=== PATIENT | female | born 1940 | race Caucasian/White ===

== ENCOUNTER 2020-02-23 22:21 | Emergency (ER) | payer MEDICARE, BC, SELFPAY ==
[2020-02-23 22:26] VITALS: BP 180/75; PULSE 57; RESP 19; TEMP 36.3
--- NOTE | 2020-02-23 22:35 | ED.ALLEREA ---
HPI - Allergic Reaction General Chief complaint: Allergic Reaction Stated complaint: ?? allergic reaction Time Seen by Provider: 02/23/20 22:31 History of Present Illness HPI narrative: 79 yo female presents from home for an allergic reaction. SHe has had redness and itching to the face and scalp since earlier this evening. Additionally has some discomfort in her mouth. She was started on bactrim yesterday for a UTi. She had taken 3 doses. She has taken it one previous time without reaction. She has no other new medications or exposures. No fever, wound, bullae Related Data Allergies Allergy/AdvReac Type Severity Reaction Status Date / Time losartan Allergy Intermediate RAPID HR, Verified 01/05/19 03:10 DIZZY, ANXIOUS prednisone Allergy Intermediate BLURRED Verified 01/05/19 03:10 VISION, FREQUENT URINATION Sulfa (Sulfonamide Allergy Intermediate Rash Verified 02/23/20 22:51 Antibiotics) adhesive tape Allergy Unknown RASH Verified 01/05/19 03:01 dexamethasone Allergy Unknown RASH Verified 01/05/19 03:01 erythromycin base Allergy Unknown RASH Verified 01/05/19 03:18 meperidine Allergy Unknown DIZZINESS/PASSES Verified 01/05/19 03:01 OUT nalbuphine Allergy Unknown PASSED OUT Verified 01/05/19 03:01 verapamil Allergy Unknown FAST Verified 01/05/19 03:01 HEART RATE Review of Systems Review of Systems: All systems reviewed & are unremarkable except as noted in HPI and below Constitutional: Constitutional: Denies chills, Denies fever(s) and Denies weakness Cardiovascular: Cardiovascular: Denies chest pain Respiratory: Respiratory: Denies dyspnea Gastrointestinal: Gastrointestinal: Denies abdominal pain and Denies nausea Genitourinary: Genitourinary: Reports dysuria Musculoskeletal: Musculoskeletal: Denies back pain Integumentary/Breasts: Skin/Breast: Reports pruritus, Reports rash and Denies skin ulcer Neurologic: Denies numbness and Denies weakness PMFSH Past Medical History Medical History (Updated 02/24/20 @ 00:00 by Background Daemon) Breast cancer HTN (hypertension) Hypothyroid Surgical History Surgical History (Updated 02/23/20 @ 22:49 by Bethel Tavarez MD) Hx of cholecystectomy Social History Social History (Updated 02/23/20 @ 22:49 by Bethel Tavarez MD) Living arrangements: with family Exam Const: General: healthy appearing, no acute distress and alert Nutritional Appearance: well nourished Orientation/consciousness: patient oriented x3 HENMT: Other: Mild redness of cheeks and scalp. Resp: Effort & Inspection: normal respiratory effort Auscultation: clear to auscultation bilaterally Cardio: Rate: regular rate Rhythm: regular rhythm Skin: Other: See HEENT Neuro: General: patient oriented x3 and CN's II-XI intact bilaterally Speech: normal speech Extrem: General: normal to inspection Course Vital Signs Vital signs: Vital Signs Temperature 36.3 C L 02/23/20 22:26 Pulse Rate 57 L 02/23/20 22:26 Respiratory Rate 19 02/23/20 22:26 Blood Pressure 180/75 H 02/23/20 22:26 Temperature 36.3 C L 02/23/20 22:26 Pulse Rate 53 L 02/23/20 23:38 Respiratory Rate 18 02/23/20 23:38 Blood Pressure 130/60 02/23/20 23:38 Pulse Oximetry 98 02/23/20 23:38 MDM - Allergic Reaction MDM Narrative Medical decision making narrative: She appears to have an allergic reaction to bactrim. She has corticosteroid allergies listed. Her reaction does is not currently severe so I will avoid them for now. If it should get worse they may be unavoidable. Differential Diagnosis Differential diagnosis: Likely allergic reaction Medical Records Attestation: I reviewed the patient's medical records. Discharge Plan Discharge Clinical Impression: Adverse reaction to drug Patient Disposition: Home, Self-Care Condition: Stable Instructions: Antibiotic Form, Antibiotic Medication Allergy (ED) Prescriptions: Martínez cohen
[2020-02-23 22:53] VITALS: BP 167/67; PULSE 58; RESP 18; O2SAT 97
[2020-02-23] MEDS: diphenhydrAMINE HCl CAP 25 MG CAPSULE PO (22:54)
[2020-02-23 23:38] VITALS: BP 130/60; PULSE 53; RESP 18; O2SAT 98
== END 2020-02-23 23:45 | disposition home or self-care (01) ==
PROVIDERS: Emergency Provider Emergency Medicine
DX: L29.9 Pruritus, unspecified (principal); T36.8X5A Adverse effect of other systemic antibiotics, initial encounter; Z85.3 Personal history of malignant neoplasm of breast; I10 Essential (primary) hypertension; E03.9 Hypothyroidism, unspecified
CPT/HCPCS: 99283; A9270

== ENCOUNTER 2022-03-24 00:19 | Day surgery (SDC) | payer MEDICARE, BC, SELFPAY ==
[2022-03-12 13:14] VITALS: BMI 28.3
--- NOTE | 2022-03-12 13:46 | PC.NURSE ---
Report to the Outpatient Waiting Room, entrance under the green pavilion located off [facility], at time ___0630____ on date _03/24/22 . Planned Procedure Time: ___829 . Time changes happen often and if your time is changed the preop area will call you the afternoon before. - You and your visitor will be asked to self-screen and do not enter if you have any COVID symptoms. - We encourage only one visitor and NO visitors under age 16 are allowed at this time. Your visitor will receive communication by the phone number that is given day of service. - The patient visitor is requested to social distance or may leave the building when not with patient due to restrictions. - A mask is required within the hospital. Patients may have clear liquids (water, carbonated beverages, clear teas, apple juice) until 3 hours prior to surgery (0530 AM) with a maximum of 20 ounces. - No food from midnight until time of surgery - Infants may have breast milk until 4 hours before surgery, infant formula 6 hours prior to surgery. - Children will be allowed to drink immediately following surgery. If applicable, please bring a bottle or sippy cup to assist with drinking. Juice, water, soda, and popsicles are readily available. For infants on formula, please bring formula the day of surgery. Pacifiers are allowed. Take the following medications with a SIP of water the morning of surgery: _CARVEDILOL, LEVOTHYROXINE_ Medications to discontinue per physician N/A Date to take last dose Please no make-up, nail french, hairspray, perfume, deodorant, or body powder the day of surgery. No jewelry (including any body piercings) or valuables the day of surgery, leave them at home. Please take a shower or bath the night before, or the morning of, surgery with an antibacterial soap. Wear comfortable, loose fitting clothing. Children are encouraged to wear pajamas. - Jewelry must be removed prior to entering the operating room. Rings and piercings that are not removed may be cut off. - The hospital will not accept responsibility for valuables. - Please leave all valuables, including medications, at home the day of surgery. If you are going home after surgery, a licensed limousine driver must drive you home. - NO public transportation without another adult. - We recommend that an adult stay with you for 24 hours following discharge. - We also recommend that you do not drive, make important decision, drink alcoholic beverages, or take any drugs that were not prescribed by your health care provider for at least 24 hours after your discharge time. For Pediatric surgeries, we recommend two adults accompany the child home. Follow any additional instructions given to you from your surgeon. If you or anyone in your household have experienced Covid symptoms in the past week, please notify your surgeon or the nurse liaison at the phone number below for possible testing. Telephone instructions given to ____PT and asked if any additional questions and then verbalized understanding. Patient advised to call surgeon office or pre surgery nurse liaison [phone] if any additional questions.
[2022-03-24] VITALS (7 sets, daily range): BP systolic 133–156; BP diastolic 58–73; PULSE 69–77; RESP 10–18; TEMP 36.1; O2SAT 97–100
--- NOTE | 2022-03-24 05:58 | ECG_ITS ---
Measurements Intervals [place] Rate: 68 P: 41 AL: 183 QRS: -35 QRSD: 103 T: 29 QT: 400 QTc: 426 Interpretive Statements SINUS RHYTHM LEFT AXIS DEVIATION DELAYED PRECORDIAL R/S TRANSITION BORDERLINE ECG NO PREVIOUS ECG AVAILABLE FOR COMPARISON Electronically Signed On 03-24-2022 8:23:04 CDT by Johnson Guillen D.O.
--- NOTE | 2022-03-24 07:01 | WPDHPUPDATE1 ---
History and Physical Update Update Date/Time: 03/24/22 07:01 History and Physical has been reviewed, including an updated exam of the patient. There are NO changes in the patient's condition. Risks, benefits, and alternatives have been discussed and questions answered. Patient agrees to proceed with procedure.
--- NOTE | 2022-03-24 07:11 | WPDANESEPPF ---
Anes - Initial Pre Proc Eval Procedure: Operation Date: 03/24/22 08:30 Proposed Procedures p Left Breast Implant Exchange with Capsulectomy - Atul Diez MD Date/Time: 03/24/22 07:11 Surgeon: Atul Diez MD Pre Op Diagnosis: Lt Breast Implant Rupture Patient Data Age: 81 Gender: F Height: 1.6 m Weight: 72.72 kg Allergies Allergy/AdvReac Type Severity Reaction Status Date / Time losartan Allergy Intermediate RAPID HR, Verified 03/24/22 07:12 DIZZY, ANXIOUS prednisone Allergy Intermediate BLURRED Verified 03/24/22 07:12 VISION, FREQUENT URINATION Sulfa (Sulfonamide Allergy Intermediate Rash Verified 03/24/22 07:12 Antibiotics) adhesive tape Allergy Unknown RASH Verified 03/24/22 07:12 dexamethasone Allergy Unknown RASH Verified 03/24/22 07:12 erythromycin base Allergy Unknown RASH Verified 03/24/22 07:12 meperidine Allergy Unknown DIZZINESS/PASSES Verified 03/24/22 07:12 OUT nalbuphine Allergy Unknown PASSED OUT Verified 03/24/22 07:12 verapamil Allergy Unknown FAST Verified 03/24/22 07:12 HEART RATE sertraline AdvReac FAST Verified 03/24/22 07:12 HEART RATE DIZZY/ANXIOUS Home Medications Medication Instructions Recorded Confirmed Type amlodipine 5 mg tablet 2.5 mg HS 03/12/22 03/12/22 History carvedilol 6.25 mg tablet 6.25 mg BID 03/12/22 03/12/22 History levothyroxine 75 mcg tablet 75 mcg DAILY 03/12/22 03/12/22 History Patient hx anesthesia problems: post op nausea/vomiting Family hx anesthesia problems: none Results Review: All pre-operative results and documents have been reviewed as part of the pre-operative evaluation. [facility] Past Medical History Medical History Breast cancer HTN (hypertension) Hypothyroid Surgical History Surgical History Hx of cholecystectomy Social History Social History Smoking status: Never smoker Second hand tobacco smoke exposure: No Alcohol intake: current Alcohol use details: MAYBE 1/MONTH Substance use: never Substance use type: does not use Living arrangements: with family Spiritual care concerns: No Anes - Eval Final PreProcedure Day of Procedure 03/24/22 07:11 Patient weight: overweight Heart: regular rate and rhythm Lungs: clear to auscultation Airway: Mallampati scale class II Neurological: alert and oriented Last oral intake: >/= 8 hours ASA classification: III Emergent: no Anesthetic plan: proceed Anesthesia type and monitoring: general LMA and standard monitoring Results Review: All pre-operative results and documents have been reviewed as part of the pre-operative evaluation. Informed Consent: The patient's anesthetic plan and its attendant risks and benefits were discussed with the patient/family/POA. Questions were solicited and answers provided to the satisfaction of the patient/family/POA.
[2022-03-24] MEDS: LACTATED RINGERS 1,000 ML 30 ML IV CONT (07:24)
[2022-03-24] MEDS: ceFAZolin 2 GM/D5W 50 ML 2 GM/50 ML BAG IVPB (08:45)
[2022-03-24] MEDS: NACL 0.9% IRRIG POUR BOTTLE 900 ML, GENTAMICIN SULFATE INJ 160 MG, ceFAZolin 2 GM, POVI... IRRIGATION (09:12)
[2022-03-24] MEDS: BUPIVACAINE/EPINEPHRINE 0.25% 50 ML VIAL 20 ML INFILTRATE (09:13)
[2022-03-24] MEDS: LIDOCAINE 1% BUFFERED WITH 8.4% SODIUM BICARB 1 ML SYRINGE 20 ML INFILTRATE (09:18)
--- NOTE | 2022-03-24 09:51 | W.PM.PROC2 ---
Procedure Note - Detailed Date of Procedure 03/24/22 Pre-op Diagnosis Lt Breast Capsular Contracture, Acquired breast deformity Post-op Diagnosis Same Procedure Performed 1. Left breast intact implant removal 2. Left breast implant placement 3. Left breast capsulectomy Surgeon Atul Diez MD Anesthesia General Findings Left previous implant Saline textured shaped implant 275cc. No seroma or masses Implant intact Left replacement implant Megha Carpio SoftTouch 310cc Silcone REF# [id number] Description of Procedure Preoperatively the risks, benefits, alternatives were discussed in extensive detail. I want her to be very realistic about the risks involved as well as expectations. Made sure answered all of her questions to her satisfaction. explained how this may not improve her symptoms in could make her worse. Answered all of her questions to her satisfaction. They voiced a clear understanding. Consent obtained. She was marked in the preoperative holding area with her verification. She was taken to the operating room placed supine on the operating room table. Anesthesia provided by anesthesiology and prepped and draped in a standard sterile fashion. Surgical time-out was taken. 1% lidocaine and 0.25% Marcaine with epinephrine was used to provide a field block. Fifteen blade used to excise the lower portion of the previous latissimus flap scar. Dissection was continued down until the capsule is identified and a removed the entirety of the anterior surface of this capsule. This was sent to pathology. I copiously irrigated with more than a L of saline solution on TUR tubing. Verified a strict hemostasis. I then irrigated with Betadine solution. Using a no-touch technique and a Livingston funnel the implant was introduced into the pocket. I closed using 2-0 Vicryl followed by 3-0 Stratafix followed by running subcuticular 4-0 Monocryl and tissue glue. Dressings were placed. She tolerated well. Estimated Blood Loss 10 Drains No Packing No Pathology Yes (Left breast implant capsule) Complications No immediate complications Condition Stable Disposition PACU
[2022-03-24] MEDS: oxyCODONE HCL (*CRX) 2.5 MG TAB IR PO (10:49)
== END 2022-03-24 11:26 | disposition home or self-care (01) ==
PROVIDERS: Visit Provider Surgery Plastic and Reconstructive Surgery
PROC: (CPT 19371; principal; 2022-03-24 08:30)
DX: T85.44XA Capsular contracture of breast implant, initial encounter (principal); N65.0 Deformity of reconstructed breast; Y83.8 Other surgical procedures as the cause of abnormal reaction of the patient, or of later complication, without mention of misadventure at the time of the procedure; Z85.3 Personal history of malignant neoplasm of breast; Z86.73 Personal history of transient ischemic attack (TIA), and cerebral infarction without residual deficits; I10 Essential (primary) hypertension; E03.9 Hypothyroidism, unspecified
CPT/HCPCS: 19371; 19342; 88300; 93005; A9270; J0461; J0690; J1580; J2405; J2704; J3010; J7120

== ENCOUNTER 2022-06-28 13:24 | Observation (INO) | payer MEDICARE, BC, SELFPAY ==
[2022-06-28] VITALS (21 sets, daily range): BP systolic 107–137; BP diastolic 53–69; PULSE 60–71; RESP 14–18; TEMP 36.5; O2SAT 92–100; BMI 25.9
--- NOTE | ~2022-06-28 | CT_ITS ---
CT head without contrast Indication: Head injury Technique: Serial scans were obtained through the brain without the administration of contrast. Dose reduction technique was used on this scan by utilizing automated exposure control and iterative recon struction technique. The dose-length product (DLP) was 605.33 mGy-cm. Findings: There is no evidence of intracranial hemorrhage, mass lesion, or acute infarct. The ventri cles and subarachnoid spaces are dilated, consistent with mild atrophy. Low attenuation regions are seen within the periventricular white matter bilaterally, likely representing changes from chronic mi crovascular ischemic disease. There is no evidence of edema, mass effect or midline shift. The visu alized paranasal sinuses and mastoid air cells are clear. Impression: No intracranial hemorrhage, mass, or acute infarct. Atrophy and chronic white matter changes, as above. Reviewed, dictated and finalized at location . K OUT MACHINE OPERATOR Impression: No intracranial hemorrhage, mass, or acute infarct. Atrophy and chronic white matter changes, as above.
--- NOTE | ~2022-06-28 | XR_ITS ---
Right Knee Technique: AP, lateral, and oblique views were obtained. Clinical History: Pain Findings: No fracture or dislocation is seen. Total knee arthroplasty is in place. No hardware compli cation identified. Soft tissues are unremarkable. No joint effusion is seen. Impression: No acute abnormality seen. Total knee arthroplasty in place. Reviewed, dictated and finalized at location . D TECHNICIAN SUPERVISOR Impression: No acute abnormality seen. Total knee arthroplasty in place.
--- NOTE | ~2022-06-28 | CT_ITS ---
Noncontrast CT scan of the pelvis CLINICAL HISTORY: Fracture TECHNIQUE: Axial noncontrast imaging of the pelvis was performed. Sagittal and coronal reformatted im ages were constructed. Dose reduction technique was used on this scan by utilizing automated exposure control and iterative reconstruction technique. FINDINGS: Right hip arthroplasty hardware is in place. There is an acute fracture through the intertr ochanteric region of the proximal right femur with additional oblique extension through the proximal right femoral shaft (coronal images 54-62). Fracture is minimally displaced overall. Hardware alignme nt otherwise appears satisfactory. There is moderate degenerative change at the superolateral aspect of the left hip joint. No acetabula r or other pelvic fracture identified. Urinary bladder unremarkable. No intrapelvic abnormality seen. There is apparent asymmetric enlargeme nt of the right vastus medialis and possibly intermedius muscles, suggestive of intramuscular hematom a. IMPRESSION: Traumatic intertrochanteric fracture of the proximal right ureter with additional oblique extension t hrough the proximal right femoral shaft, as detailed above. Fracture is minimally displaced. Underlying right hip arthroplasty present. Apparent asymmetric enlargement of the right vastus medialis and possibly intermedius muscles, sugges tive of intramuscular hematoma given presumed recent trauma with the fracture present. Reviewed, dictated and finalized at location M. ER HOUSE OPERATOR IMPRESSION: Traumatic intertrochanteric fracture of the proximal right ureter with addition al oblique extension through the proximal right femoral shaft, as detailed abov e. Fracture is minimally displaced. Underlying right hip arthroplasty present. Apparent asymmetric enlargement of the right vastus medialis and possibly inter medius muscles, suggestive of intramuscular hematoma given presumed recent trau ma with the fracture present.
--- NOTE | ~2022-06-28 | XR_ITS ---
Right ankle Technique: AP, oblique, and lateral views were obtained. Clinical History: Pain Findings: No acute fracture or dislocation is seen. Osseous alignment is anatomic. Ankle mortise and other visualized joint spaces are preserved. Soft tissues are otherwise unremarkable. Impression: Unremarkable right ankle. Reviewed, dictated and finalized at location . ER PRODUCTION LINE ARC Impression: Unremarkable right ankle.
--- NOTE | ~2022-06-28 | XR_ITS ---
AP views of the pelvis Clinical history: Femoral fracture COMPARISON: 06/28/2022 Findings: Oblique, mildly displaced fracture of the intertrochanteric region and proximal shaft of th e right femur is again noted. Right hip arthroplasty unchanged. Left hip and bilateral SI joint space s are preserved. Soft tissues are unremarkable. Impression: Oblique, mildly displaced fracture of the right intertrochanteric region and proximal right femoral s haft, unchanged. Reviewed, dictated and finalized at location M. ERCIAL INTERN Impression: Oblique, mildly displaced fracture of the right intertrochanteric region and pr oximal right femoral shaft, unchanged.
--- NOTE | ~2022-06-28 | XR_ITS ---
AP view of the pelvis and AP and lateral views of the right hip Clinical history: Pain Findings: Right hip arthroplasty is in place. There is an acute, oblique fracture extending through t he intertrochanteric region, as well as to the medial aspect of the proximal right femoral shaft. Fra cture is mildly displaced. There is heterotopic ossification at the right greater trochanteric region .. Impression: Acute intertrochanteric fracture of the proximal right femur with additional extension to the medial aspect of the very proximal right femoral shaft. Fracture is mildly displaced. Right hip arthroplasty with heterotopic ossification, as noted above. Reviewed, dictated and finalized at location . NDER TESTER Impression: Acute intertrochanteric fracture of the proximal right femur with additional ex tension to the medial aspect of the very proximal right femoral shaft. Fracture is mildly displaced. Right hip arthroplasty with heterotopic ossification, as noted above.
--- NOTE | ~2022-06-28 | XR_ITS ---
Right wrist Technique: PA, oblique, lateral, and ulnar deviation views were obtained. Clinical History: Pain Findings: No acute fracture or dislocation is seen. Osseous alignment is anatomic. There are minimal degenerative changes at the radioscaphoid articulation and first CMC joint. Soft tissues are unremark able. Impression: No fracture or dislocation. Minimal degenerative changes, as above. Reviewed, dictated and finalized at location . NGS COUNSELOR Impression: No fracture or dislocation. Minimal degenerative changes, as above.
--- NOTE | ~2022-06-28 | XR_ITS ---
EXAMINATION: XR femur RT min 2V DATE: 06/29/2022 10:31 INDICATION: Right femur fracture. TECHNIQUE: 2 views of right femur on 4 radiographs were obtained. COMPARISON: Right hip radiographs 06/28/2022 FINDINGS: There is a total right hip arthroplasty. There is an acute comminuted periprosthetic fractu re of proximal right femur. The main distal fracture fragment demonstrates 1.4 cm lateral displacemen t and 0.8 cm posterior displacement. There is heterotopic ossification near right hip. There is a tot al right knee arthroplasty with patellar resurfacing in near-anatomic alignment. No periprosthetic vasu cency to suggest loosening or infection. IMPRESSION: 1. Acute comminuted periprosthetic fracture of proximal right femur. Reviewed, dictated and finalized at location A. PER TENDER
--- NOTE | 2022-06-28 13:48 | ED.LOWEXIN ---
HPI - Extremity Injury (Lower) General Chief Complaint: Extremity Injury, Lower Stated Complaint: rt leg and hip broken Time Seen by Provider: 06/28/22 13:33 History of Present Illness HPI Narrative: Patient is an 82-year-old female here for evaluation of right hip and right wrist pain after a fall today. Patient states that she was ambulating her in her usual state of health when she tripped over a piece of sidewalk. This caused her to fall onto her right side and strike her head against the pavement. She denies loss of consciousness. Since the fall she has been unable to ambulate due to pain in her hip. She has not attempted any pain medicine yet. Denies numbness or tingling in her extremities. She follows with Dr. Aranda and has had her knee replaced on the right side. Related Data Home Medications Medication Instructions Recorded Confirmed amlodipine 5 mg tablet 2.5 mg HS 03/12/22 03/12/22 carvedilol 6.25 mg tablet 6.25 mg BID 03/12/22 03/12/22 levothyroxine 75 mcg tablet 75 mcg DAILY 03/12/22 03/12/22 Allergies Allergy/AdvReac Type Severity Reaction Status Date / Time losartan Allergy Intermediate RAPID HR, Verified 03/24/22 07:12 DIZZY, ANXIOUS prednisone Allergy Intermediate BLURRED Verified 03/24/22 07:12 VISION, FREQUENT URINATION Sulfa (Sulfonamide Allergy Intermediate Rash Verified 03/24/22 07:12 Antibiotics) adhesive tape Allergy Unknown RASH Verified 03/24/22 07:12 dexamethasone Allergy Unknown RASH Verified 03/24/22 07:12 erythromycin base Allergy Unknown RASH Verified 03/24/22 07:12 meperidine Allergy Unknown DIZZINESS/PASSES Verified 03/24/22 07:12 OUT nalbuphine Allergy Unknown PASSED OUT Verified 03/24/22 07:12 verapamil Allergy Unknown FAST Verified 03/24/22 07:12 HEART RATE sertraline AdvReac FAST Verified 03/24/22 07:12 HEART RATE DIZZY/ANXIOUS Review of Systems Review of Systems: Gen: Denies fevers or chills Eyes: Denies eye pain or visual change ENT: Denies congestion Respiratory: Denies shortness of breath or cough CV: Denies chest pain or palpitations GI: Denies abdominal pain nausea, emesis or diarrhea : denies burning, urgency, frequency or hematuria Musculoskeletal: Reports right hip pain and right wrist pain Neuro: Denies numbness, tingling, weakness or focal weakness Skin: Denies rash Except as documented, all other systems reviewed and negative PMFSH Past Medical History Medical History Breast cancer HTN (hypertension) Hypothyroid Surgical History Surgical History (Updated 06/28/22 @ 18:03 by Mary Fernandez NP) H/O cataract extraction H/O hysterectomy for benign disease H/O ventral hernia repair History of total right knee replacement Hx of cholecystectomy S/P total right hip arthroplasty Social History Social History Smoking status: Never smoker Second hand tobacco smoke exposure: No Alcohol intake: current Alcohol use details: MAYBE 1/MONTH Substance use: never Substance use type: does not use Living arrangements: with family Spiritual care concerns: No Exam Narrative: APPEARANCE: Well appearing, no pain in distress, well-nourished. Head: Normocephalic. EYES: PERRLA/EOMI, conjunctivae clear NOSE: No nasal drainage EARS: External ear normal in appearance THROAT: Oropharynx is clear. Mucous membranes are moist. NECK: Supple. No adenopathy, no masses. RESPIRATORY: Airway patent, respirations nonlabored. Clear to auscultation bilaterally, no rales, rhonchi, wheezing. CARDIOVASCULAR: Strong DP and PT pulses bilaterally. Regular rate and rhythm without murmurs, rubs, or gallops. ABDOMINAL: Normoactive bowel sounds. Soft, nontender, nondistended. No rebound tenderness or guarding. MUSCULOSKELETAL: Right hip is shortened and externally rotated. Tenderness to palpation along th
[2022-06-28] MEDS: MORPHINE SULFATE (*CRX) 4 MG/ML INJ IV PUSH (14:00)
[2022-06-28 14:31] LABS: Influenza A QL RT-PCR Negative (Negative); Influenza B QL RT-PCR Negative (Negative); SARS-CoV-2 RNA PCR Negative
[2022-06-28 15:25] LABS: Basophils Percent Auto 0.4 % (0.2-1.2); Eosinophils Percent Auto 0.8 % (0-4.4); Hemoglobin 14.5 g/dL (12.0-15.0); Immature Granulocyte Absolute 0.02 K/mm3 (0.00-0.031); Immature Granulocyte Percent A 0.4 % (0-0.5); Lymphocytes Absolute Auto 1.38 K/mm3 (0.9-3.2); Lymphocytes Percent Auto 27.5 % (18.3-44.2); Mean Corpuscular HGB Conc 33.7 g/dl (32-36); Mean Corpuscular Hemoglobin 31.6 pg (26-34); Mean Corpuscular Volume 93.7 fl (80-100); Mean Platelet Volume 9.6 fl (7.4-10.4); Monocytes Absolute Auto 0.5 K/mm3 (0.1-0.6); Neutrophils Absolute Auto 3.1 K/mm3 (1.3-6.7); Neutrophils Percent Auto 61.9 % (45.5-73.1); Platelet Count Result 201 k/mm3 (150-375); Red Blood Count 4.59 M/mm3 (4.2-5.4); Red Cell Distribution Width 12.4 % (11.5-14.5)
[2022-06-28] MEDS: MORPHINE SULFATE (*CRX) 2 MG/ML INJ IV PUSH ×2 (15:26→20:39)
[2022-06-28 15:30] LABS: Alanine Aminotransferase 19 U/L (6-35); Albumin Level 3.7 g/dL (3.5-5.1); Alkaline Phosphatase 77 U/L (38-126); Anion Gap 2 mmol/L (8-16); Aspartate Amino Transferase 28 U/L (14-36); Bilirubin,Total 1.1 mg/dL (0.2-1.3); Blood Urea Nitrogen 16 mg/dL (7-17); Carbon Dioxide 30 mmol/L (22-30); Chloride 107 mmol/L (98-107); Estimated CRCL calculation 45 ml/min; Estimated Glomerular Filt Rate > 60; Glucose 123 mg/dL (65-110); Potassium 4.4 mmol/L (3.4-5.0); Sodium 139 mmol/L (137-145)
[2022-06-28] MEDS: TETANUS,DIPHTHERIA,AC PERTUSSIS ADULT (0.5 ML) BOOSTRIX IM (17:08)
--- NOTE | 2022-06-28 18:00 | PM.IMHP ---
H&P: HPI History of Present Illness Date/Time: 06/28/22 18:00 Chief Complaint: Fall Narrative: This is a 82-year-old female patient who came in for evaluation of right hip and right wrist pain after a fall today. The patient stated that she was walking in her usual manner when she tripped over a piece of sidewalk. She fell onto her right side and struck her head against the pavement. She did not lose any consciousness. She was unable to get up due to her pain in her right hip. She did not attempt to take any pain medication. She has had a right knee replacement in the past. Wrist x-ray was read as minimal degenerative changes no fracture dislocation. Hip and pelvis x-ray was read as the followingAcute intertrochanteric fracture of the proximal right femur with additional extension to the medial aspect of the very proximal right femoral shaft. Fracture is mildly displaced. Right hip arthroplasty with heterotopic ossification, as noted above. Ankle x-rays unremarkable to the right ankle knee x-ray was read as no acute abnormality seen total knee arthroplasty in place. Head CT was read as the followingNo intracranial hemorrhage, mass, or acute infarct. Atrophy and chronic white matter changes, as above. Pelvis CT was read as the followingTraumatic intertrochanteric fracture of the proximal right ureter with additional oblique extension through the proximal right femoral shaft, as detailed above. Fracture is minimally displaced. Underlying right hip arthroplasty present. Apparent asymmetric enlargement of the right vastus medialis and possibly intermedius muscles, suggestive of intramuscular hematoma given presumed recent trauma with the fracture present. She is negative for influenza A/B and COVID. Orthopedic Dr. Aranda has been notified per ED provider. The patient is being admitted to observation status on the date of service of 06/28/2022 Review of Systems Review of Systems: See HPI All systems reviewed & are unremarkable except as noted in HPI and below Constitutional: Constitutional: Reports as per HPI and Reports no additional constitutional complaints Eyes: Eyes: Reports as per HPI and Reports no additional eye complaints ENT: Reports system reviewed and no additional complaints, except as documented and Reports Normal hearing present Cardiovascular: Cardiovascular: Reports no additional cardiovascular complaints Respiratory: Respiratory: Reports no additional respiratory complaints and Reports no additional respiratory complaints Gastrointestinal: Gastrointestinal: Reports as per HPI and Reports no additional gastrointestinal complaints Musculoskeletal: Musculoskeletal: Reports no additional musculoskeletal complaints Integumentary/Breasts: Skin/Breast: Reports system reviewed and no additional complaints, except as docu and Reports as per HPI Neurologic: Reports system reviewed and no additional complaints, except as documented, Reports as per HPI and Reports Normal hearing present Psychiatric: Psychiatric: Reports no additional psychiatric complaints and Reports as per HPI Endocrine: Endocrine: Reports no additional endocrine complaints Hematologic/Lymphatic: Hematologic/Lymphatic: Reports no additional hematologic/lymphatic complaints Allergic/Immunologic: Allergic/Immunologic: Reports no additional allergic/immunologic complaints PMFSH Past Medical History Medical History Anxiety Breast cancer radiation HTN (hypertension) Hypothyroid TIA (transient ischemic attack) Surgical History Surgical History (Updated 06/28/22 @ 23:18 by Mary Fernandez NP) H/O breast augmentation Left breast H/O cataract extraction H/O hysterectomy for benign disease H/O ventral hernia repair History of appendectomy History of bladder surgery History of colposcopy History of total right knee replacement Hx of cholecystectomy S/P lumpectomy, left breast S/P tot
--- NOTE | 2022-06-28 19:00 | PC.NURSE ---
Assumed care of pt. at this time. report from Roxanna CHOE
--- NOTE | 2022-06-28 19:24 | PC.NURSE ---
Report given to Jazmine CHOE on 3rd MS at 192
[2022-06-28] MEDS: fentaNYL CITRATE INJ (*CRX) 100 MCG/2 ML VIAL 25 MCG IV PUSH (22:59)
[2022-06-29] MEDS: amLODIPine BESYLATE 2.5 MG TABLET BY MOUTH (01:27)
[2022-06-29] MEDS: carvediloL 6.25 MG TABLET BY MOUTH ×2 (01:27→09:26)
[2022-06-29] MEDS: LEVOTHYROXINE SODIUM 75 MCG TABLET BY MOUTH (05:40)
[2022-06-29 06:00] VITALS: BP 119/57; PULSE 64; RESP 18; TEMP 36.3; O2SAT 96
[2022-06-29 06:28] LABS: Basophils Percent Auto 0.3 % (0.2-1.2); Eosinophils Percent Auto 0.5 % (0-4.4); Hematocrit 35.4 % (37.0-47.0); Hemoglobin 11.7 g/dL (12.0-15.0); Immature Granulocyte Absolute 0.05 K/mm3 (0.00-0.031); Immature Granulocyte Percent A 0.6 % (0-0.5); Lymphocytes Absolute Auto 1.41 K/mm3 (0.9-3.2); Lymphocytes Percent Auto 18.2 % (18.3-44.2); Mean Corpuscular HGB Conc 33.1 g/dl (32-36); Mean Corpuscular Hemoglobin 31.4 pg (26-34); Mean Corpuscular Volume 94.9 fl (80-100); Mean Platelet Volume 9.1 fl (7.4-10.4); Monocytes Absolute Auto 0.7 K/mm3 (0.1-0.6); Monocytes Percent Auto 8.5 % (2.6-8.5); Neutrophils Absolute Auto 5.6 K/mm3 (1.3-6.7); Neutrophils Percent Auto 71.9 % (45.5-73.1); Platelet Count Result 136 k/mm3 (150-375); Red Blood Count 3.73 M/mm3 (4.2-5.4); Red Cell Distribution Width 12.1 % (11.5-14.5); White Blood Count 7.7 K/mm3 (4.5-10.0)
[2022-06-29 06:50] LABS: Alanine Aminotransferase 30 U/L (6-35); Albumin Level 3.1 g/dL (3.5-5.1); Alkaline Phosphatase 66 U/L (38-126); Anion Gap 1 mmol/L (8-16); Aspartate Amino Transferase 38 U/L (14-36); Bilirubin,Total 1.7 mg/dL (0.2-1.3); Blood Urea Nitrogen 11 mg/dL (7-17); Calcium 8.1 mg/dL (8.4-10.2); Carbon Dioxide 26 mmol/L (22-30); Chloride 102 mmol/L (98-107); Estimated CRCL calculation 59 ml/min; Estimated Glomerular Filt Rate > 60; Glucose 90 mg/dL (65-110); Magnesium 2.1 mg/dL (1.6-2.3); Potassium 3.4 mmol/L (3.4-5.0); Sodium 129 mmol/L (137-145)
--- NOTE | 2022-06-29 07:53 | PCPTNOTE ---
Addendum entered by Tricia Lynne, PT 06/29/22 12:29: Pt to have ortho surgery or will be transferred to another facility. Pt DC from PT this date until pt is stable/able to participate in therapy. Original Note: Waiting on ortho evaluation prior to initiation of therapy. Will Follow.
[2022-06-29 09:26] VITALS: PULSE 64
--- NOTE | 2022-06-29 10:16 | PM.CNOR ---
Assessment and Plan Assessment and plan (1) Periprosthetic intertrochanteric fracture of femur: Code(s): M97.8XXA - Periprosthetic fracture around other internal prosthetic joint, initial encounter; Z96.649 - Presence of unspecified artificial hip joint Status: Acute Plan patient is an 82-year-old female well known to me who fell onto the right hip yesterday while looking at antiques at the [employer] store sustaining a comminuted right periprosthetic proximal femur fracture. This involves the peritrochanteric region with impaction and comminution and mild displacement of greater and lesser trochanters and medial calcar. CT scan showed also a longitudinal oblique fracture that extends into the posterior femoral shaft without extension or completion of the fracture anteriorly. No definite displacement of femoral component relative to the shaft was identified and the patient was admitted for further evaluation. Patient had direct anterior approach right total hip arthroplasty in 2006 at [facility]. Alejandra acolade stem and PSL cup utilized. The procedure was performed for displaced femoral neck fracture. She was not having any problems prior to her fall and has remained active however she has had a few falls in the last year. She also has a history of a right total knee replacement approximately 6 years ago. Her past medical history is significant for possible remote history of TIA. Her family practice physician has advised her that she does not need to be on baby aspirin any longer and she is not currently taking any aspirin or other blood thinner. On examination there is no swelling in the right leg. She has some focal tenderness in the posterior aspect of her right calf but no pretibial ankle or pedal edema noted. She had intact sensation in her feet. She reports some chronic bilateral foot pain that she thinks contributes to her falling because she tends to shuffle her feet as result. She had a 2+ dorsalis pedis pulse palpable. The ankle was x-rayed but is nontender today and had no swelling. She complained of severe pain in her right knee after I have moved her right leg in inch into abduction and when she relaxed the pain went away and she had no tenderness or swelling or warmth about the right knee. I suspect the right knee pain was referred from her proximal femur or femoral shaft. When I felt that I had her legs positioned align properly with her torso, the right leg looked at least 1 1/2 cm shorter than the left. Considering that she has had a knee replacement on the right 1 would expect the right leg to be a little bit longer in the absence of impaction of the femoral component into the shaft. She also landed on her right hand and her right palm and sore. The dorsum of her hand and wrist shows no tenderness. She has mild soreness making it a fist. She had x-rays of the right wrist yesterday which were negative. Her laboratory studies show her hemoglobin is 11.7. This is down from 14.5 on admission yesterday. Her platelets are mildly diminished at 136,000. her CT scan did show some hematoma formation in the Proximal vastus lateralis. her sodium is only 129. It was 139 on admission yesterday. In my review of the x-rays and CT scan yesterday and comparison with the 2006 x-rays at my office, I could not see definite evidence for loosening of the femoral component with respect to the shaft or impaction however her apparent leg length discrepancy today is very suspicious for impaction of femoral component into the shaft. If that is the case, she has an unstable femoral component and will require revision surgery to a long-stem femoral component with internal fixation of the trochanteric fragments and cerclage cable in of the longitudinal crack in the posterior femur shaft. I have discussed this with patient and her . I have ordered repeat x-rays for further evaluation. I will give her 1 dose
[2022-06-29] MEDS: ENOXAPARIN 40 MG/0.4 ML SYRINGE SUB-Q (11:01)
[2022-06-29 14:00] VITALS: BP 109/46; PULSE 64; RESP 18; TEMP 36.8; O2SAT 96
--- NOTE | 2022-06-29 14:21 | PM.TDS ---
Transfer Discharge Sum: Prov Provider Date of admission: 06/28/22 17:29 Primary care physician: PHYSICIAN NOT ON STAFF Admitting clinician: Rosemary Garner MD Attending physician on admission: Roseamry Garner Consults: 06/28/22 Care Coordination Consult Routine Comment: Reason for Consult:: Acute Rehab Consult Consult to Physician Routine Comment: Consulting Provider: Vadlez Aranda Reason for consultation: intertrochanteric hip fracture Has provider been notified: Yes Attending physician on discharge: Jose Beckman Discharging clinician: Jessica Coleman Anticipated date of transfer: 06/29/22 Receiving physician/facility: [facility] DS: Admitting Diagnosis Discharge Date 06/29/22 Admitting Diagnosis Fracture of proximal right femur DS: Discharge Diagnosis Discharge Diagnosis (1) Closed intertrochanteric fracture of right hip: Code(s): S72.141A - Displaced intertrochanteric fracture of right femur, initial encounter for closed fracture Status: Acute Assessment and Plan: -Dr. Aranda was notified. -continue with analgesics -director long term care consult has been placed -PT OT evaluation greatly be appreciated. (2) Hypothyroid: Code(s): E03.9 - Hypothyroidism, unspecified Status: Acute Assessment and Plan: -continue with levothyroxine -thyroid levels within normal limits. (3) HTN (hypertension): Code(s): I10 - Essential (primary) hypertension Status: Acute Assessment and Plan: amlodipine and Coreg (4) Anxiety: Code(s): F41.9 - Anxiety disorder, unspecified Status: Acute Assessment and Plan: P.r.n. Ativan IV given during hospital stay. Transfer Discharge Sum: Med Medications Active and Home Medications: Home Medications amlodipine 5 mg tablet 2.5 mg HS 03/12/22 [History Confirmed 06/28/22] carvedilol 6.25 mg tablet 6.25 mg BID 03/12/22 [History Confirmed 06/28/22] levothyroxine 75 mcg tablet 75 mcg DAILY 03/12/22 [History Confirmed 06/28/22] Active Medications Amlodipine Besylate (Amlodipine Besylate 2.5 Mg Tablet) 2.5 mg BY MOUTH HS [facility] Last Admin: 06/29/22 01:27 Dose: 2.5 mg Carvedilol (Carvedilol 6.25 Mg Tablet) 6.25 mg BY MOUTH Q12HR [facility] Last Admin: 06/29/22 09:26 Dose: 6.25 mg Fentanyl Citrate (Fentanyl Citrate Inj (*Crx) 100 Mcg/2 Ml Vial) 25 mcg IV PUSH Q4H PRN PRN Reason: Pain Rated 7-10 Last Admin: 06/28/22 22:59 Dose: 25 mcg Acetaminophen (Ofirmev 1,000 Mg Ivpb) 1,000 mg in 100 mls @ 400 mls/hr IVPB Q6HR [facility] Stop: 06/30/22 00:00 Last Admin: 06/29/22 12:20 Dose: 400 mls/hr Levothyroxine Sodium (Levothyroxine Sodium 75 Mcg Tablet) 75 mcg BY MOUTH DAILY@0630 [facility] Last Admin: 06/29/22 05:40 Dose: 75 mcg Lorazepam (Lorazepam Inj (*Crx) 2 Mg/Ml Vial) 0.5 mg IV PUSH Q6H PRN PRN Reason: Anxiety Transfer Discharge Sum: Hosp Hospital Course Hospital course: Inessa Knott is a 82 year old female with a past medical history of hypothyroidism, TIA, hypertension, breast cancer, right total knee replacement 6 years ago, right and total hip arthroplasty in 2006. Patient had direct anterior approach of right total hip arthroplasty in 2006 at [facility]. This was performed for a displaced femoral neck fracture. Patient presented to the ED on 06/28/2022 for evaluation of right hip pain post ground level fall. Patient had been ambulating in her usual state of health when she tripped over a piece a sidewalk and landed onto her right hip where she heard a bone cracking sound. Patient did hit her head against the pavement. Patient denies loss of consciousness. CT head without acute intracranial abnormality or bleed. Patient follows with Dr. Aranda and he has done her knee replacement on the right side. X-ray of hip and pelvis revealed intertrochanteric fracture of the proximal right femur, fracture mildly displaced. On exam
--- NOTE | 2022-06-29 17:38 | PC.NURSE ---
Pt left with [facility]. Transfer to [facility]. Report given to Key. Family following to [place].
== END 2022-06-29 17:40 | disposition home or self-care (01) ==
LOC: ANHED 17:15 → ANH3MEDSUR 21:29
PROVIDERS: Nurse Practitioner; Physician Assistant; Admitting Provider Internal Medicine; Emergency Provider General Practice; Visit Provider Internal Medicine
DX: S72.141A Displaced intertrochanteric fracture of right femur, initial encounter for closed fracture (principal); M97.01XA Periprosthetic fracture around internal prosthetic right hip joint, initial encounter; W01.198A Fall on same level from slipping, tripping and stumbling with subsequent striking against other object, initial encounter; E03.9 Hypothyroidism, unspecified; I10 Essential (primary) hypertension; Z23 Encounter for immunization; F41.9 Anxiety disorder, unspecified; E87.1 Hypo-osmolality and hyponatremia; Z96.651 Presence of right artificial knee joint; Z96.641 Presence of right artificial hip joint; Z20.822 Contact with and (suspected) exposure to COVID-19; F10.90 Alcohol use, unspecified, uncomplicated; R90.82 White matter disease, unspecified; Z86.73 Personal history of transient ischemic attack (TIA), and cerebral infarction without residual deficits; Z85.3 Personal history of malignant neoplasm of breast; Z79.899 Other long term (current) drug therapy
CPT/HCPCS: 36415; 51702; 70450; 72170; 72192; 73110; 73502; 73552; 73562; 73610; 80053; 82306; 83735; 84443; 85025; 87636; 90471; 90715; 96372; 96374; 96375; 96376; 99285; A9270; G0378; J0131; J1650; J2270; J3010

== ENCOUNTER 2022-12-04 12:13 | Outpatient (CLI) | payer MEDICARE, BC, SELFPAY ==
--- NOTE | ~2022-12-04 | US_ITS ---
EXAMINATION: US venous doppler [facility] DATE: 12/04/2022 12:53 INDICATION: Lower limb swelling TECHNIQUE: Singer scale images without and with compression and Doppler images of the bilateral lower e xtremity veins were obtained. COMPARISON: 07/28/2013 FINDINGS: The right common femoral vein, profunda femoral vein, femoral vein, popliteal vein, peroneal trunk, p osterior tibial veins, and greater saphenous vein are patent. The left common femoral vein, profunda femoral vein, femoral vein, popliteal vein, peroneal trunk, po sterior tibial veins are patent. There is superficial venous thrombosis of the left greater saphenous vein. IMPRESSION: 1. Superficial venous thrombosis of the left greater saphenous vein. 2. Patent right lower extremity veins. Reviewed, dictated and finalized at location B.
== END 2022-12-04 12:14 | disposition home or self-care (01) ==
PROVIDERS: Visit Provider Orthopaedic Surgery
DX: I82.812 Embolism and thrombosis of superficial veins of left lower extremity (principal)
CPT/HCPCS: 93970

== ENCOUNTER 2022-12-04 13:12 | Emergency (ER) | payer MEDICARE, BC, SELFPAY ==
[2022-12-04 13:37] VITALS: BP 185/68; PULSE 62; RESP 18; TEMP 36.6; O2SAT 98
[2022-12-04 14:30] LABS: Basophils Percent Auto 0.4 % (0.2-1.2); Eosinophils Absolute Auto 0.1 K/mm3 (0-0.3); Eosinophils Percent Auto 1.9 % (0-4.4); Hemoglobin 13.9 g/dL (12.0-15.0); Immature Granulocyte Absolute 0.01 K/mm3 (0.00-0.031); Immature Granulocyte Percent A 0.2 % (0-0.5); Lymphocytes Absolute Auto 1.33 K/mm3 (0.9-3.2); Lymphocytes Percent Auto 28.8 % (18.3-44.2); Mean Corpuscular HGB Conc 33.1 g/dl (32-36); Mean Corpuscular Hemoglobin 30.5 pg (26-34); Mean Corpuscular Volume 92.1 fl (80-100); Mean Platelet Volume 8.7 fl (7.4-10.4); Monocytes Absolute Auto 0.4 K/mm3 (0.1-0.6); Monocytes Percent Auto 9.1 % (2.6-8.5); Neutrophils Absolute Auto 2.8 K/mm3 (1.3-6.7); Neutrophils Percent Auto 59.6 % (45.5-73.1); Platelet Count Result 156 k/mm3 (150-375); Red Blood Count 4.56 M/mm3 (4.2-5.4); Red Cell Distribution Width 13.5 % (11.5-14.5); White Blood Count 4.6 K/mm3 (4.5-10.0)
[2022-12-04 14:40] LABS: Prothrombin Time 13.3 Seconds (11.1-14.7)
[2022-12-04 14:41] LABS: Partial Thromboplastin Time 31.5 SECONDS (22.3-36.8)
[2022-12-04 14:49] LABS: Anion Gap 4 mmol/L (8-16); Blood Urea Nitrogen 10 mg/dL (7-17); Calcium 9.3 mg/dL (8.4-10.2); Carbon Dioxide 31 mmol/L (22-30); Chloride 104 mmol/L (98-107); Estimated CRCL calculation 44 ml/min; Estimated Glomerular Filt Rate > 60; Glucose 103 mg/dL (65-110); Potassium 3.9 mmol/L (3.4-5.0); Sodium 139 mmol/L (137-145)
--- NOTE | 2022-12-04 16:28 | ED.EXTPRO ---
HPI - Extremity Problem General Chief complaint: Extremity Problem,Nontraumatic Stated complaint: dvt Time Seen by Provider: 12/04/22 14:29 History of Present Illness HPI Narrative: Patient is an 82-year-old female who presents ER with concerns for DVT. Patient reports she is developed some edema in her lower extremities since having a surgery several months ago for periprosthetic fracture. After reporting the edema to her PCP she had an outpatient echo that was normal. Following that she saw her orthopedic surgeon Dr. Woo due to some swelling of the right knee and leg and discomfort. He ordered bilateral lower extremity ultrasounds that were performed today. The results show a greater saphenous vein thrombosis on the left side. There is no DVT and only superficial involvement. Patient has no chest pain or chest pressure. No difficulty breathing. No history of DVT previously. She has no pain or discomfort to the left leg. Related Data Home Medications Medication Instructions Recorded Confirmed carvedilol 6.25 mg tablet 6.25 mg BID 03/12/22 10/21/22 levothyroxine 75 mcg tablet 75 mcg DAILY 03/12/22 10/21/22 Allergies Allergy/AdvReac Type Severity Reaction Status Date / Time losartan Allergy Intermediate RAPID HR, Verified 10/21/22 13:13 DIZZY, ANXIOUS prednisone Allergy Intermediate BLURRED Verified 10/21/22 13:13 VISION, FREQUENT URINATION Sulfa (Sulfonamide Allergy Intermediate Rash Verified 10/21/22 13:13 Antibiotics) adhesive tape Allergy Unknown RASH Verified 10/21/22 13:13 dexamethasone Allergy Unknown RASH Verified 10/21/22 13:13 erythromycin base Allergy Unknown RASH Verified 10/21/22 13:13 meperidine Allergy Unknown DIZZINESS/PASSES Verified 10/21/22 13:13 OUT nalbuphine Allergy Unknown PASSED OUT Verified 10/21/22 13:13 verapamil Allergy Unknown FAST Verified 10/21/22 13:13 HEART RATE sertraline AdvReac FAST Verified 10/21/22 13:13 HEART RATE DIZZY/ANXIOUS Review of Systems Cardiovascular: Cardiovascular: Denies chest pain and Denies radiating jaw, neck or arm pain Respiratory: Respiratory: Denies dyspnea and Denies wheezing Musculoskeletal: Musculoskeletal: Denies arthralgias and Denies joint swelling Comments: Lower extremity edema PMFSH Past Medical History Medical History Anxiety Breast cancer radiation HTN (hypertension) Hypothyroid TIA (transient ischemic attack) Surgical History Surgical History H/O breast augmentation Left breast H/O cataract extraction H/O hysterectomy for benign disease H/O ventral hernia repair History of appendectomy History of bladder surgery History of colposcopy History of total right knee replacement Hx of cholecystectomy S/P lumpectomy, left breast S/P total right hip arthroplasty Family History Family History Son Lung cancer Mother Carcinoma of colon Father Acute myocardial infarction Sibling Acute myocardial infarction Brother Pulmonary emboli Sister Social History Social History (Updated 10/21/22 @ 13:24 by Leatha Garcia CMA) Social History: She is and had 3 children but 1 has from lung cancer. The other 2 children became nurses. She is a Retired nurse. Code status full code Smoking status: Never smoker Second hand tobacco smoke exposure: No Alcohol intake: current Alcohol use details: MAYBE 1/MONTH Substance use: never Substance use type: does not use Lack of Transportation: No Lack of Food: Never True Current Housing: I Do Not Have Housing Concerned About Future Housing: No Difficulty Paying Gas/Electric Bills: No Difficulty Paying for Meds: No Currently Unemployed: No Education: High School Diploma/GED Difficulty
[2022-12-04 16:37] VITALS: BP 170/69; PULSE 61; RESP 20; O2SAT 99
== END 2022-12-04 16:38 | disposition home or self-care (01) ==
PROVIDERS: Emergency Provider Emergency Medicine
DX: I82.819 Embolism and thrombosis of superficial veins of unspecified lower extremity (principal); E03.9 Hypothyroidism, unspecified; I10 Essential (primary) hypertension; F41.9 Anxiety disorder, unspecified; Z85.3 Personal history of malignant neoplasm of breast; Z86.73 Personal history of transient ischemic attack (TIA), and cerebral infarction without residual deficits
CPT/HCPCS: 36415; 80048; 85025; 85610; 85730; 93970; 99283

== ENCOUNTER 2024-01-27 08:11 | Outpatient (CLI) | payer MEDICARE, BC, SELFPAY ==
--- NOTE | ~2024-01-27 | US_ITS ---
EXAMINATION: US venous doppler [facility] DATE: 01/27/2024 08:59 INDICATION: Left upper limb swelling. TECHNIQUE: Grayscale images without and with compression and Doppler images of the bilateral upper ex tremity veins were obtained. COMPARISON: 01/05/2019 FINDINGS: The left internal jugular vein, subclavian vein, axillary vein, brachial vein, basilic vein, cephalic vein, radial vein, and ulnar vein are patent. IMPRESSION: 1. Patent left upper extremity veins. No evidence of venous thrombosis. Reviewed, dictated and finalized at location A.
== END 2024-01-27 08:12 | disposition home or self-care (01) ==
LOC: ANHIMG 08:13
PROVIDERS: PCP Internal Medicine; Visit Provider Internal Medicine
DX: M79.89 Other specified soft tissue disorders (principal)
CPT/HCPCS: 93971

== ENCOUNTER 2024-02-16 10:00 | Outpatient (RCR) | payer MEDICARE, BC, SELFPAY ==
--- NOTE | 2023-12-30 14:37 | OPREHPOC ---
Outpatient Therapy Plan of Care This is a Multidisciplinary Plan of Care that may contain components documented by all disciplines (PT, OT, and ST.) PT Problem 1 PT Problem #1 Knowledge Deficit PT Goal 1 Goal *indep with HEP Target Visit 8 PT Problem 2 PT Problem #2 Pain PT Goal 1 Goal 1* pt report worst rating of back pain at 3/10 2* self assessment Oswetsry rating of 16% limitation in activity level 3* pt report walking/standing tolerances of 60 minutes Target Visit 8 PT Problem 3 PT Problem #3 Impaired Flexibility PT Goal 1 Goal increase flexibility to improve transfer and mobility skills: 1* R Knee flexion 105' Target Visit 8 PT Problem 4 PT Problem #4 Impaired Strength PT Goal 1 Goal increase strength of trunk and LE s to improve mobility and posture 1* supine R and L LE exercises x 20 reps single leg standing with 1 UE support x 30 seconds 2* R 3* L 4* 2 minute walking test distance of 350' with wheeled walker Target Visit 8
--- NOTE | 2023-12-30 14:37 | PTOPEVAL1 ---
Assessment and note entered by Tanya Weinberg, PT Evaluation Information Assessment Status Evaluation ICD-10 Condition Codes (PT) Pain in low back M54.50,M25.561,Pain in left knee M25.562 Onset past year Subjective Information chronic back pain, gradual increase in pain, without falls or trauma to back; recent xray: L knee moderate medial compartment OA; R knee and R hip were negative Activity: used wheeled walker for walking distances, in home without device; is able to do her home and work tasks, with limitation in time due to pain; walking/stand tolerance of 40 min; do sitting knee exercises sometimes; Goal: not have as much back and knee pain, walk better; Reported Pain Level Pain Score Self Report Additional Pain Score Comments pain range in the past week: 0-5/10 R and L lumbar area; increase pain: when first wake up in AM; walk/ stand 40 min; sit 60 minutes decrease pain: change positions, ibuprofen, heating pad also have pain in both knees; Assessment PT Clinical Summary Inessa has the diagnosis of back pain, decreased R and L knee ROM, bilateral trochanteric bursitis, hip abduction weakness. She uses the wheeled walker for distances and in home without device. Self assessment Oswestry rating of 20% limitation in activity level. She is able to perform all home and self care tasks indep, with pain increase with walking/standing and sitting too long. Her history includes R TKR, R THR with fracture and revision in May. With the evaluation: she has poor standing position of her trunk and hips; decreased strength of R hip and knee; decreased R hip flexion, R knee flexion ROM; 2 minute walking test distance of 310' with wheeled walker, 5 reps sit/stand time of 19 seconds, without use of UE's. She is not able to tolerate lying on her R side due to knee and ankle pain. At the end of the PT evaluation, she reported
--- NOTE | 2024-02-02 10:10 | PCPTNOTE ---
Called and canceled reason unknown. AKS
--- NOTE | 2024-02-16 10:56 | PTOPDC ---
Assessment and note entered by Tanya Weinberg, PT Discharge Report Assessment Status Discharge ICD-10 Condition Codes (PT) Pain in low back M54.50,M25.561,Pain in left knee M25.562 Onset past year Subjective Information is doing better with walking and legs are stronger have been doing the exercises at home; have not had any falls since starting therapy; use the walker only when going out of the house; Reported Pain Level Pain Score Self Report Additional Pain Score Comments pain range in the past week: 0-5/10; reported walking/standing tolerance of about 1 hour with home tasks increase pain: sometimes when wake up in the morning back hurts decrease pain: sit and rest with heating pad; take tylenol 1-2 x/day Assessment PT Clinical Summary Inessa has received 7 PT sessions. Compared to the initial evaluation: pain rating same at 0-5/10; report standing/walking activity tolerance from 40 to 60 minutes; Oswestry self assessment from 20 to 28% limitation in activity level; R knee active flexion from 95' to 100' in sitting; increase strength of LEs with supine mat exercises and single leg standing time with 1 UE support; 2 minute walking test distance with wheeled walker decreased slightly from 310 to 290' education completed for HEP, safety with walker use; The goals were partially achieved. Discharge PT services. She is to continue with her HEP and activity level as tolerated. Plan of Care PT Services Indicated No
== END 2024-02-16 11:27 | disposition home or self-care (01) ==
LOC: ANHPT 10:00
PROVIDERS: PCP Internal Medicine; Visit Provider Orthopaedic Surgery
DX: M43.06 Spondylolysis, lumbar region (principal); M76.32 Iliotibial band syndrome, left leg; M76.31 Iliotibial band syndrome, right leg; M70.61 Trochanteric bursitis, right hip; M70.62 Trochanteric bursitis, left hip; R29.898 Other symptoms and signs involving the musculoskeletal system
CPT/HCPCS: 97110; 97140; 97162; 97530

== ENCOUNTER 2024-12-06 20:19 | Emergency (ER) | payer MEDICARE, BC, SELFPAY ==
--- NOTE | ~2024-12-06 | XR_ITS ---
EXAM: XR hip LT 2V w AP pelvis DATE: 12/06/2024 20:48 HISTORY: fall . COMPARISON: 12/03/2023. FINDINGS: Osteopenia. Lumbar degenerative disc disease. Degenerative change in the pubic symphysis. Scattered enthesopathy. Pelvic phleboliths. Mild left hip osteoarthritis. Partially visualized, uncom plicated appearing right hip hardware. Bowel anastomosis. IMPRESSION: No acute osseous finding in the pelvis or left hip. Reviewed, dictated and finalized at location K.
[2024-12-06 20:26] VITALS: BP 154/74; PULSE 97; RESP 24; TEMP 36.4; O2SAT 97
[2024-12-06 20:38] VITALS: BP 154/74; PULSE 95; RESP 20; O2SAT 99
--- OUTSIDE RECORDS SUMMARY | 2024-12-06 21:24 | XMS_ITS | Clinical Summary ---
Author Organization [facility] Address [address] [place] [address] Care Team Providers Care R&D Engineer Name Role Phone Yoel Marcos MD Unavailable [phone] Maco Luna MD Primary Care Provider [phone] Allergies Active Allergy Reactions Criticality Noted Date Comments Atorvastatin Unknown 04/28/2018 Clorazepate Other (see comment) 09/13/2023 Dexamethasone Unknown 11/09/2017 Erythromycin Unknown 11/09/2017 Erythromycin Unknown,Rash Low 09/13/2023 Hydrocodone Unknown 09/13/2023 Meperidine Unknown 11/09/2017 Meperidine Hcl Nausea Only 09/13/2023 Morphine Hallucinations Medium 11/21/2013 Nalbuphine Unknown,Anaphylaxis High 11/09/2017 Sulfa Antibiotics Nausea Only 01/05/2022 Tape Unknown 11/09/2017 Tetracycline Rash Medium 11/21/2013 Verapamil Unknown,Palpitations Low 11/09/2017 Medications levothyroxine (SYNTHROID) 75 MCG tabletIndications: Acquired hypothyroidism Take 1 tablet (75 mcg total) by mouth every morning. TAKE 1 TABLET BY MOUTH DAILY IN THE MORNING ON AN EMPTY STOMACH 90 tablet 3 01/15/20 23 Active acetaminophen (TYLENOL) 500 MG tablet Take 1 tablet (500 mg total) by mouth 2 (two) times a day. Active atorvastatin (LIPITOR) 20 MG tablet Take 1 tablet (20 mg total) by mouth nightly at bedtime. 09/08/19 24 Active MYRBETRIQ 50 MG 24 hr tablet Take 1 tablet (50 mg total) by mouth daily. 02/07/20 24 Active vitamin D2, ergocalciferol, (DRISDOL) 1.25 mg capsule Take 1 capsule (1.25 mg total) by mouth once a week. 03/10/20 Active cyanocobalamin (B-12) 1000 MCG/ML injection Inject 1 mL (1,000 mcg total) into the muscle every 30 (thirty) days. 08/05/19 Active trospium chloride ER 60 MG CAPSULE SR 24 HR capsule TAKE 1 CAPSULE BY MOUTH EVERY MORNING WITH WATER ONLY ON AN EMPTY STOMACH AT LEAST 1 HOUR BEFORE MEAL/FOOD 09/15/19 25 Active losartan (COZAAR) 50 MG tablet TAKE 1 TABLET(50 MG) BY MOUTH DAILY 90 tablet 1 11/30/19 25 Active losartan (COZAAR) 50 MG tablet TAKE 1 TABLET(50 MG) BY MOUTH DAILY 90 tablet 09/02/19 25 025 Discontinued Active Problems Problem Noted Date Diagnosed Date Frequent urination 05/25/2023 Acute bilateral low back pain without sciatica 1 OAB (overactive bladder) 12/21/2022 Pressure injury of sacral region, stage 1 2022 Gait disorder 07/28/2022 History of hip fracture 07/28/2022 Wart of scalp 03/17/2022 Mood disorder 01/14/2022 Seasonal allergies 10/01/2021 Acute pain of left knee 08/27/2021 Sea sickness, sequela 05/10/2019 Gastroesophageal reflux disease without esophagi tis 11/14/2018 Actinic keratosis 06/06/2018 Insomnia 06/06/2018 Osteoarthrosis 06/06/2018 Dyslipidemia 12/15/2017 Lymphedema of arm 11/12/2017 Essential hypertension 11/09/2017 Foot pain 11/09/2017 Acquired hypothyroidism 11/09/2017 Resolved Problems Problem Noted Date Diagnosed Date Resolved Date Acute upper respiratory infection 07/26/2019 05/25/2023 Cellulitis of left upper extremity 01/11/2019 05/25/2023 Acute right-sided low back p ain without sciatica 10/25/2018 05/25/2023 Routine general medical exam ination at a health care facility 11/08/2017 12/02/2020 Encounters Date Type Department Care Team Description 09/18/2024 10:00 AM CDT Office Visit [facility] [place] [address] Yoel Marcos MD Hypertension (6mo) 09/18/2024 Travel from Last 3 Months Immunizations Immunization Administration Dates Next Due Flublok (Quadrivalent) 03/02/2023,03/17/2022 Fluzone High Dose - >Age 65 (Prefilled Syringe) 02/22/2017 Influenza Adult (Generic) 03/30/2019,01/17/2018 Pneumococcal (Pneumovax 23) 05/10/2019 Pneumococcal (Prevnar 13) 11/09/2017 Tdap (Generic) 06/28/2022 Family History Medical History Relation Comments CHF Brother Coronary artery disease Father Stroke Mother auto immune disorder Sister Lung Cancer Son Relation Status Comments Brother (Age 71) Father (Age 63) Mother (Age 79) Sister (Age 76) Son (Age 44) Social History Tobacco Use Types Packs/Day Years Used Date Smoking Tobacco: Never Smokeless Tobacco: Never Tobacco Cessation:Counseling Given: Not Answered Alcohol Use Standard Drinks/Week Comments Not Currently 0 (1 standard drink = 0.6 oz pur e alcohol) AUDIT-C Answer Date Recorded Frequency of Alcohol Consumption Monthly or less 10/24/2018 Average Number of Drinks Not on file 019 Frequency of Binge Drinking Not on file 07/2018 Comments No Sex and Gender Information Value Date Recorded Sex Assigned at Not on file Legal Sex Female 11:13 PM TRAVEL AGENT Gender Identity Not on file Sexual Orientation Not on file Occupation Industry Job Start Date Job End Date Retired Not on file Not on file Not on file Last Filed Vital Signs Vital Sign Reading Time Taken Comments Blood Pressure 100/64 09/18/2024 9:56 AM CDT Pulse 82 09/18/2024 9:56 AM CDT Temperature 36.4 C (97.6 F) 02/28/2022 5:30 AM CDT Respiratory Rate 16 02/28/2022 8:01 AM CDT Oxygen Saturation 97% 09/18/2024 9:56 AM CDT Inhaled Oxygen Concentration - - Weight 67.8 kg (149 lb 6.4 oz) 09/18/2024 9:56 A M CDT Height 160 cm (5' 3) 09/18/2024 9:56 AM CDT Body Mass Index 26.47 09/18/2024 9:56 AM CDT Plan of Treatment Upcoming Encounters Date Type Department Care Team (Late st Contact Info) Description 09/24/2025 10:00 AM CDT Office Visit [facility] [address] [place] [address] Yoel Marcos MD Three [facility] [address] [place] [address] Health Maintenance Due Date Last Done Comments Zoster Vaccines (1 of 2) 1989 RSV Immunization or 60+ Years (1 - 1-dose 75+ series) 2014 Annual Medicare Wellness Visit 01/16/2024 01/14/2023 COVID-19 Vaccine (4 - 2023-2 5 season) 2024 06/01/2021, 08/13/2020, 07/16/2020 PHQ-2 (Physician [place]) 05/24/2024 DTaP, Tdap and Td Vaccines ( 2 - Td or Tdap) 06/28/2032 06/28/2022 Pneumococcal Vaccine: 50+ Years Completed 05/10/2019, 11/09/2017 Meningococcal B Vaccine Aged Out No l onger eligible based on patient's age to complete this topic Meningococcal Vaccine Aged Out No geetha sukhi eligible based on patient's age to complete this topic RSV Immunizations Under 20 Months Aged Out No longer eligible b ased on patient's age to complete this topic Insurance MEDICARE [facility] MEDICARE [facility] Care Teams R&D Engineer Relationship Specialty Start Date End Date Yoel Marcos MD Three [facility], [address] [place], [place] [address] PCP - CARDIOTHORACIC SURGERY CARDIOVASCULAR DISEASE 02/28/22 Maco Luna MD [address] [place] [id number] PCP - General INTERNAL MEDICINE 09/13/23
--- OUTSIDE RECORDS SUMMARY | 2024-12-06 21:24 | XMS_ITS | Referral Summary ---
Author Organization [facility] Address [address] [facility] [place] [address] Phone Care Team Providers Care Loose Hand Packer Name Role Phone Moisés Dougherty MD Primary Care Provider [phone] Helio Aldrich MD Unavailable [phone] Allergies Active Allergy Reactions Criticality Noted Date Comments Adhesive Unknown 11/09/2017 Doxycycline Rash Medium 06/29/2022 Hyoscyamine Sulfate Rash Medium 07/16/2022 Meperidine Unknown 11/21/2013 Nalbuphine Other (See comments) High 11/21/2013 Passed out Opioids - Morphine Analogues Hallucinations Medium 05/2013 Sulfa (Sulfonamide Antibiotics) Nausea only Low 01/05/2022 Tetracycline Rash Medium 11/21/2013 Tetracycline Hcl Rash Medium 11/21/2013 Verapamil Unknown 07/01/2022 Medications aspirin 81 mg enteric coated tablet 01/07/2017Aspirin, po solid 81 mg Tablet, delayed release (enteric coated)POdailyCurrent Medication 01/08/20 17 Active levothyroxine (SYNTHROID) 75 mcg tablet 01/07/2017Synthroid, po solid 75 mcg TabletPOdailyCurrent Medication 01/08/20 17 Active propylene glycoL 0.6 % drops 01/07/2017Systane, drops 0.3 %-0.4% DropsOUdailyCurrent Medication 01/08/20 17 Active carvediloL (COREG) 6.25 mg tablet 1 tablet (6.25 mg total) 2 (two) times a day with meals 05/11/20 22 Active traMADoL (ULTRAM) 50 mg tablet Take 1 tablet (50 mg total) by mouth every 6 (six) hours as needed for pain 40 tablet 07/03/19 23 Active Additional Information Patient not taking.Reported on 08/13/2022 acetaminophen 500 mg capsule Take 2 capsules (1,000 mg total) by mouth every 8 (eight) hours 30 tablet 07/03/19 Active ascorbic acid (VITAMIN C) 500 mg tablet,chewab leIndications :Vitamin deficiency prevention Take 1 tablet/chew tab (500 mg total) by mouth daily 07/04/19 Active Additional Information Patient not taking.Reported on 08/13/2022 celecoxib (CeleBREX) 200 mg capsuleIndica tions:Pain Take 1 capsule (200 mg total) by mouth 2 (two) times a day 60 capsule 07/03/19 Active famotidine (PEPCID) 20 mg tabletIndicat ions:Heartbur n Take 1 tablet (20 mg total) by mouth nightly 30 tablet 11 07/03/19 Active methocarbamoL (ROBAXIN) 500 mg tablet Take 1 tablet (500 mg total) by mouth 3 (three) times a day 07/03/19 23 Active polyethylene glycol (MIRALAX) 17 gram packetIndicat ions:constipa tion Take 1 packet (17 g total) by mouth daily 07/04/19 Active senna-docusat e (PERICOLACE) 8.6-50 mg Take 2 tablets by mouth 2 (two) times a day 07/03/19 Active Additional Information Patient not taking.Reported on 08/13/2022 ciprofloxacin (CIPRO) 500 mg tablet 08/15/19 Active diazePAM (VALIUM) 2 mg tablet 09/15/19 Active Active Problems Problem Noted Date Diagnosed Date Gait disorder 07/28/2022 Aftercare following right hip joint replacement surgery 07/15/2022 Hip fracture requiring opera tive repair, right, closed, initial encounter 06/29/2022 Neuropathy 06/29/2022 Hypothyroid 06/29/2022 Thrombocytopenia 06/29/2022 Wart of scalp 03/17/2022 Mood disorder 01/14/2022 Seasonal allergies 10/01/2021 Acute pain of left knee 08/27/2021 Fatigue 02/13/2019 Gastroesophageal reflux disease without esophagi tis 11/14/2018 Osteoarthrosis 06/06/2018 Venous insufficiency 06/02/2018 Localized edema 04/12/2018 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, estrogen receptor positive 01/17/2018 Cancer Staging:Clinical stage from 05/27/1989: cT1b, cN0, cM0, G1, ER: Positive, DE: Positive, HER2: Unknown - Signed by Kale Shepherd MD on 01/17/2018 Essential hypertension 11/09/2017 Hyperlipidemia 05/09/2010 Malignant neoplasm of breast 05/09/2010 Syncope due to orthostatic hypotension 0 Immunizations Immunization Administration Dates Next Due Influenza, Unspecified 03/30/2019,01/17/2018, Pneumococcal Conjugate, Unspecified 11/17/2017 Social History Tobacco Use Types Packs/Day Years Used Date Smoking Tobacco: Never Smokeless Tobacco: Never Alcohol Use Standard Drinks/Week Comments Not Currently 0 (1 standard drink = 0.6 oz pur e alcohol) twice a month Social Connection and Isolat ion Panel [NHANES] Answer Date Recorded In a typical week, how many times do you talk on the phone with family, friends, or neighbors? More than three times a week 06/30/2022 How often do you get togethe r with friends or relatives? More than three times a week 06/30/2022 How often do you attend chur ch or caodaism services? Never 06/30/2022 Do you belong to any clubs o r organizations such as advent groups, unions, fraternal or athletic groups, or school groups? No 06/30/2022 How often do you attend meet ings of the clubs or organizations you belong to? Never 06/30/2022 Are you , , di vorced, , never , or living with a partner? 06/30/2022 Overall Financial Resource Strain (CARDIA) Answe r Date Recorded How hard is it for you to pa y for the very basics like food, housing, medical care, and heating? Not hard at all 06/30/2022 Hunger Vital Sign Answer Date Recorded Within the past 12 months, y ou worried that your food would run out before you got the money to buy more. Never true 06/30/19 23 Within the past 12 months, t he food you bought just didn't last and you didn't have money to get more. Never true 06/30/2022 PRAPARE - Transportation Answer Date Re corded In the past 12 months, has l ack of transportation kept you from medical appointments or from getting medications? No 11/2022 In the past 12 months, has l ack of transportation kept you from meetings, work, or from getting things needed for daily living? No 06/30/2022 Comments No Sex and Gender Information Value Date Recorded Sex Assigned at Not on file Legal Sex Female 8:18 AM CDT Gender Identity Not on file Sexual Orientation Not on file Last Filed Vital Signs Vital Sign Reading Time Taken Comments Blood Pressure 160/79 09/24/2022 10:02 AM CDT Pulse 69 09/24/2022 10:02 AM CDT Temperature 36.2 C (97.1 F) 07/03/2022 10:49 PM FISH TENDER Respiratory Rate 18 07/03/2022 10:49 PM FISH TENDER Oxygen Saturation 98% 07/03/2022 10:49 PM FISH TENDER Inhaled Oxygen Concentration - - Weight 72.6 kg (160 lb) 09/24/2022 10:02 AM CDT Height 165.1 cm (5' 5) 09/24/2022 10:02 AM CDT Body Mass Index 26.63 09/24/2022 10:02 AM CDT Plan of Treatment Not on file Medical Devices Implanted Type Area Brine Supervisor Device Identifier Shelf Expiration Date Model / Serial / Lot Synthes 1.7mm 750mm Crimp Cerclage Cable Orthopedic Stainless Steel 298.801.01s - [id number] Implanted:Qty: 1 on 07/01/2022 by Helio Aldrich MD at [facility] Right: Hip Synthes I 03/23/2026 298.801.01S / / [id number] [employer] Mdm 42mm 2 Mobility Modular Hip E Liner Acetabular Cocr [id number] - [id number] Implanted:Qty: 1 on 07/01/2022 by Helio Aldrich MD at [facility] Right: Hip [employer] 12/31/2026 [id number] / / [id number] Synthes 1.7mm 750mm Crimp Cerclage Cable Orthopedic Stainless Steel 298.801.01s - [id number] Implanted:Qty: 1 on 07/01/2022 by Helio Aldrich MD at [facility] Right: Hip Synthes I 07/21/2026 298.801.01S / / [id number] Synthes 1.7mm 750mm Crimp Cerclage Cable Orthopedic Stainless Steel 298.801.01s - [id number] Implanted:Qty: 1 on 07/01/2022 by Helio Aldrich MD at [facility] Right: Hip Synthes I 09/20/2025 298.801.01S / / [id number] Synthes 1.7mm 750mm Crimp Cerclage Cable Orthopedic Stainless Steel 298.801.01s - [id number] Implanted:Qty: 1 on 07/01/2022 by Helio Aldrich MD at [facility] Right: Hip Synthes I 12/21/2026 298.801.01S / / [id number] [employer] Reclaim 16mm 140mm 20 Grit Blast Surface Finish Hip Distal [id number] - [id number] Implanted:Qty: 1 on 07/01/2022 by Helio Aldrich MD at [facility] Right: Hip [employer] [id number] 09/21/[id number] / / [id number] [employer] Reclaim Articul/Valente 20mm 85mm 20 Grit Blast Surface Finish [id number] - [id number] Implanted:Qty: 1 on 07/01/2022 by Helio Aldrich MD at [facility] Right: Hip [employer] [id number] 01/21/[id number] / / [id number] [employer] Articul/Valente 28mm Hip +5mm 12/14 Taper Head Femoral Cocr Sterile Latex Free [id number] - [id number] Implanted:Qty: 1 on 07/01/2022 by Helio Aldrich MD at [facility] Right: Hip [employer] 03/23/2027 [id number] / / [id number] [employer] Insert Gnosticist Adm X3 [id number] - [id number] Implanted:Qty: 1 on 07/01/2022 by Helio Aldrich MD at [facility] Right: Hip [employer] 09/02/2026 [id number] / / [id number] Explanted Type Area Brine Supervisor Device Identifier Shelf Expiration Date Model / Serial / Lot [employer] 38mm Modular 2 Mobility Hip D Liner Acetabular [id number] - [id number] Explanted:Qty: 1 on 07/01/2022 at [facility] Right: Hip [employer] 06/22/2026 [id number] / / [id number] Insurance MEDICARE [facility] MEDICARE [employer] [place] MEDIC[place] [employer] [place] Advance Directives For more information, please contact: [phone] * Full Code (Latest Code Status on File) Date Activated Date Inactivated Comments 07/01/2022 6:27 PM 07/04/2022 3:45 AM * Full Code Date Activated Date Inactivated Comments 06/29/2022 7:48 PM 07/01/2022 6:27 PM Care Teams Loose Hand Packer Relationship Specialty Start Date End Date Moisés Dougherty MD [address] [place] [address] PCP - General Family Medicine 01/17/18 Helio Aldrich MD [address] [place] [address] DR BENTLEY [address] [place] [address] Surgeon Orthopedic Surgery 07/03/22
--- OUTSIDE RECORDS SUMMARY | 2024-12-06 21:24 | XMS_ITS | Continuity of Care Document ---
Author Organization [facility] Address [address] [facility] [place] [address] Phone Care Team Providers Care Tile Mason Name Role Phone Dionicio Zhang Unavailable Unavailable Procedures Procedure Date Office/outpatient Visit, Est Office/outpatient Visit, Est Office/outpatient Visit, Est No Script Progressive Lens, Plastic Frames Deluxe Tint Photochromatic, Plastic Tax - Medical Eye Exam & Treatment Refraction Office/outpatient Visit, Est Visual Functional Status Assessed Office/outpatient Visit, Est Advance Directives Directive Yes / No Effective Date File Name No Information Encounters Encounter Description Practice Location Reason(s) For Visit Diagnoses Date Provider Providers Copied on Encounter Office/outpat ient Visit, [facility], [address] [place] [address] [address], [place], [place], [id number], [place] tel:[phone] [facility] No Information 8201 0 Leatha Greenberg. [address] , [address], [place], [address], [place]. tel:[phone] Office/outpat ient Visit, [facility], [address], [place], [place], [id number], [place] tel:[phone] [facility] No Information Feb-2 2-201 0 Doisy Edward. [address] [place] [address] , [address], [place], [address], [place]. tel:[phone] Office/outpat ient Visit, [facility], [address] [place] [address] [address], [place], [place], [address], [place] tel:[phone] SEC [facility] No Information 9 Leatha Greenberg. [address] [place] [address] , [address], [place], [address], [place]. tel:[phone] [facility], [address] [place] [address] [address], [place], [place], [id number], [place] tel:[phone] SEC [facility] No Information 8 [facility] . [address] [facility], [address], [place], [place], [id number], [place]. tel:[phone] Referring Provider: Dionicio Jones, [address] [place], [place] [address], [place], [place], [facility]. tel:[phone] sulting Provider: Nile Geiger, [address] [place] [address], [place], [place], [facility]. tel:[phone] [facility], [address], [place], [place], [address], [place] tel:[phone] [facility] [place] No Information 8 Leatha Greenberg. [address] [place] [address] [address] , [address], [place], [address], [place]. tel:[phone] Office/outpat ient Visit, [facility], [address] [place] [address] [address], [place], [place], [id number], [place] tel:[phone] [facility] [place] No Information 7 Leatha Greenberg. [address] [place] [address] , [address], [place], [address], [place]. tel:[phone] Office/outpat ient Visit, Est [facility], [address], [place], [place], [address], [place] tel:[phone] SEC [facility] No Information 9-200 7 Ebonihaleigh Greenberg. [address], [address], [place], [address], [place]. tel:[phone] Family History Family Member Type Diagnosis Age At Onset No Information Payers Payer name Insurance type Covered alliance party ID Authoriza tion(s) [place] [id number] [place] CI [id number] Social History Type Description Quantity Date Captured Comments Sex Female Smoking Status No Information Chief Complaint And Reason For Visit No Information Reason For Referral Reason For Referral No Information History Of Present Illness Encounter Date Complaint History Of Prese nt Illness No Information Functional Status Date Functional Assessmen t No Information Instructions Date Instruction Additional Infor mation No Information Assessments Type Assessment Date No Information Patient Care Teams Name Effective Dates (start - stop) Status Members No Information
--- OUTSIDE RECORDS SUMMARY | 2024-12-06 21:24 | XMS_ITS ---
Author Name Auto Generated, Auto Generated Organization [facility] ices Address [address] [place] [address] Phone [phone] Care Team Providers Care Service Consultant Name Role Phone Julio Cesar Spaulding Unavailable Deion Jaeger Unavailable Lex Alanis Unavailable Functional Status No Results Mental Status No Results Allergies and Intolerances Name Onset Date Reaction Severity meperidine (Allergy) Fri Feb 10 20:23:00 EST 202 3 verapamil (Allergy) Fri Feb 10 20:23:00 EST 2022 Sulfa (Sulfonamide Antibiotics) (Allergy) Fri Fe b 10 20:23:00 EST 2022 Opioids - Morphine Analogues (Allergy) Fri Feb 1 0 20:22:00 EST 2022 tetracycline (Allergy) Fri Feb 10 20:22:00 EST 2 023 tetracycline HCl (Allergy) Fri Feb 10 20:22:[address] 2022 adhesive (Allergy) Fri Feb 10 20:22:00 EST 2022 nalbuphine (Allergy) Fri Feb 10 20:21:00 EST 202 3 doxycycline (Allergy) Fri Feb 10 20:21:00 EST 20 23 Medications Medication Directions Start Date End Date enoxaparin 40 mg/0.4 mL subcutaneous syringe 0.4mL SYRINGE (ML) Subcutaneous 1 Time Daily for 7 Days Indication: DVT proph Neda Feb 07:00:00 EST 2022Jul 23 06:59:00 EST 2022 aspirin 81 mg tablet,delayed release 1 tablet TABLET, DELAYED RELEASE (ENTERIC COATED) Oral 1 Time Daily for 7 Days Indication: DVT proph Neda Feb 07:00:00 EST 2022Jul 23 06:59:00 EST 2022 aspirin 325 mg tablet 1 tablet TABLET Or al 1 Time Daily for 21 Days Indication: DVT proph WedJul 23 07:00:00 2022Jul 24 01:00:00 2022 diazePAM 2 mg tablet 1 tab TABLET Oral P RN Indication: anxiety anxiety WedJul 15 15:00:00 2022Jul 24 01:00:00 2022 LORazepam 0.5 mg tablet 1 tab TABLET Ora l 1 Time Daily for 1 Day Indication: anxiety WedJul 15 17:00:00 2022 Neda Jul 16 12:02:00 2022 mupirocin 2 % topical ointment as directed OINTMENT (GRAM) Topical 1 Time Daily Indication: Wound care Buttocks- Cleanse with NS.Apply Mupirocin 2% brice cover with Ca+ Allginate then cover with bordered foam dressing Q day and PRN WedJul 13 15:28:00 2022Jul 22 16:25:00 2022 ergocalciferol (vitamin D2) 1,250 mcg (50,000 unit) capsule 1 Capsule CAPSULE Oral 2 Times Weekly Indication: Vit D deficiency WedJul 09 11:30:00 2022Jul 24 01:00:00 2022 cyanocobalamin (vit B-12) 500 mcg tablet 1 TABLET Oral 1 Time Daily Indication: B 12 deficiency WedJul 09 11:30:00 2022Jul 24 01:00:00 2022 Stimulant Laxative Plus 8.6 mg-50 mg tablet 2 tab TABLET Oral PRN 1 Time Daily Indication: constipation Wed 14 16:48:00 2022Jul 24 01:00:00 2022 TUBErsoL 5 tub. unit/0.1 mL intradermal injection solution 0.1 ml VIAL (ML) Intradermal 1 Time Weekly for 2 Weeks Indication: tb 1st injection on admission, then one week after. Read between 48 and 72 hours Sat Jun 11 09:00:00 2022 Sat Jul 18 08:59:00 2022 TUBErsoL 5 tub. unit/0.1 mL intradermal injection solution Read Results VIAL (ML) Other 1 Time Weekly for 2 Weeks Indication: tb Read results between 48-72 hours after 1st and 2nd (1 week apart). If positive do chest x-ray. Wed 13 09:00:00 2022Jul 20 08:59:00 2022 acetaminophen 500 mg tablet 2 tabs TABLET Oral PRN Every 8 Hours Indication: pain, not to exceed 4000mg q day Sat Feb 11 13:00:00 EST 2022Jul 24 01:00:00 EST 2022 ascorbic acid (vitamin C) 500 mg chewable tablet 1 tab TABLET,CHEWABLE Oral 1 Time Daily Indication: supplement Sat Feb 11 09:00:00 EST 2022Jul 24 01:00:00 EST 2022 aspirin 81 mg tablet,delayed release 1 tab TABLET, DELAYED RELEASE (ENTERIC COATED) Oral 1 Time Daily Indication: heart health Sat Feb 11 09:00:00 EST 2022 Neda Feb 23 16:39:00 EST 2022 carvediloL 6.25 mg tablet 1 tab TABLET O ral 2 Times Daily Indication: htn Sat Feb 11 09:00:00 EST 2022Jul 24 01:00:00 EST 2022 celecoxib 200 mg capsule 1 cap CAPSULE O ral 2 Times Daily Indication: pain Sat Feb 11 09:00:00 EST 2022Jul 24 01:00:00 EST 2022 enoxaparin 40 mg/0.4 mL subcutaneous syringe 40 mg SYRINGE (ML) Subcutaneous 1 Time Daily for 21 Days Indication: DVT prevention Sat Feb 11 21:00:00 EST 2022 Neda Feb 23 16:39:00 EST 2022 famotidine 20 mg tablet 1 tab TABLET Ora l 1 Time Daily Indication: GERD Sat Feb 11 21:00:00 EST 2022Jul 24 01:00:00 EST 2022 FeroSuL 325 mg (65 mg iron) tablet 1 tab TABLET Oral 1 Time Daily Indication: anemia Sat Feb 11 09:00:00 EST 2022Jul 24 01:00:00 EST 2022 levothyroxine 75 mcg tablet 1 tab TABLET Oral 1 Time Daily Indication: hypothyroidism Sat Feb 11 07:00:00 EST 2022Jul 24 01:00:00 EST 2022 methocarbamoL 500 mg tablet 1 tab TABLET Oral 3 Times Daily Indication: muscle spasms Sat Feb 11 07:00:00 EST 2022Jul 24 01:00:00 EST 2022 polyethylene glycoL 3350 17 gram oral powder packet as directed POWDER IN PACKET (EA) Oral 1 Time Daily Indication: constipation Sat Feb 11 09:00:00 EST 2022Jul 24 01:00:00 EST 2022 Systane Complete 0.6 % eye drops 1 drop DROPS Both Eyes 1 Time Daily Indication: dry eyes Sat b 11 09:00:00 EST 2022Jul 24 01:00:00 EST 2022 Stimulant Laxative Plus 8.6 mg-50 mg tablet 2 tab TABLET Oral 2 Times Daily Indication: constipation Sat Feb 11 09:00:00 EST 2022 Tue Feb 14 16:49:00 EST 2022 Phospha Neutral 250 mg tablet 1 tab TABLET Oral 2 Times Daily for 1 Day Indication: low phos Sat Feb 09:00:00 EST 2022 Sun Feb 12 08:59:00 EST 2022 traMADoL 50 mg tablet 1 tab TABLET Oral PRN Every 6 Hours Indication: pain Sat b 13:00:00 EST 2022Jul 24 01:00:00 EST 2022 Problems Active Concerns * Periprosthetic fracture around internal prosthetic right hip joint, subsequent encounter* Code: * Start Date: WedJul 03 00:00:00 EST 2022 * End Date: * Text: * Fall on same level from slipping, tripping and stumbling without subsequent striking against object, subsequent encounter* Code: * Start Date: WedJul 03 00:00:00 EST 2022 * End Date: * Text: * Acute posthemorrhagic anemia* Code: * Start Date: WedJul 03 00:00:00 EST 2022 * End Date: * Text: * Presence of other bone and tendon implants* Code: * Start Date: WedJul 03 00:00:00 EST 2022 * End Date: * Text: * Displaced subtrochanteric fracture of right femur, subsequent encounter for closed fracture with routine healing* Code: * Start Date: WedJul 03 00:00:00 EST 2022 * End Date: * Text: * Unilateral primary osteoarthritis, left hip* Code: * Start Date: WedJul 03 00:00:00 EST 2022 * End Date: * Text: * Spondylosis without myelopathy or radiculopathy, lumbosacral region* Code: * Start Date: WedJul 03 00:00:00 EST 2022 * End Date: * Text: * Essential (primary) hypertension* Code: * Start Date: WedJul 03 00:00:00 EST 2022 * End Date: * Text: * Hypothyroidism, unspecified* Code: * Start Date: WedJul 03 00:00:00 2022 * End Date: * Text: * Polyneuropathy, unspecified* Code: * Start Date: WedJul 03 00:00:00 2022 * End Date: * Text: * Gastro-esophageal reflux disease without esophagitis* Code: * Start Date: WedJul 03 00:00:00 2022 * End Date: * Text: * Malignant neoplasm of central portion of left female breast* Code: * Start Date: WedJul 03 00:00:00 2022 * End Date: * Text: * Thrombocytopenia, unspecified* Code: * Start Date: WedJul 03 00:00:00 2022 * End Date: * Text: * Dry eye syndrome of bilateral lacrimal glands* Code: * Start Date: WedJul 03 00:00:00 2022 * End Date: * Text: * Personal history of transient ischemic attack (TIA), and cerebral infarction without residual deficits* Code: * Start Date: WedJul 03 00:00:00 2022 * End Date: * Text: * Personal history of (healed) traumatic fracture* Code: * Start Date: WedJul 03 00:00:00 2022 * End Date: * Text: * emt intermediate (current) use of aspirin* Code: * Start Date: WedJul 03 00:00:00 2022 * End Date: * Text: * emt intermediate (current) use of anticoagulants* Code: * Start Date: WedJul 03 00:00:00 2022 * End Date: * Text: * Pain in right knee* Code: * Start Date: WedJul 03 00:00:00 2022 * End Date: * Text: * Slow transit constipation* Code: * Start Date: WedJul 03 00:00:00 2022 * End Date: * Text: * Other specified anxiety disorders* Code: * Start Date: WedJul 03 00:00:00 2022 * End Date: * Text: Reason for Referral Past Medical History
--- OUTSIDE RECORDS SUMMARY | 2024-12-06 21:24 | XMS_ITS | Encounter Summary ---
Author Organization [facility] Address [address] [place] [address] Care Team Providers Care Well Site Drilling Engineer Name Role Phone Moisés Dougherty MD Primary Care Provider [phone] Yoel Marcos MD Unavailable [phone] Maco Luna MD Primary Care Provider [phone] Encounter Details Date Type Department Care Team (Latest Contact Info) Description 03/29/2018 Abstract [facility] Luis Clark MD Social History Tobacco Use Types Packs/Day Years Used Date Smoking Tobacco: Never Assessed Comments Unknown Sex and Gender Information Value Date Recorded Sex Assigned at Not on file 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 Gender Identity Not on file Sexual Orientation Not on file documented as of this encounter Plan of Treatment Upcoming Encounters Date Type Department Care Team (Late st Contact Info) Description 09/24/2025 10:00 AM CDT Office Visit [facility] [address] [place] [address] Yoel Marcos MD [facility], [address] [place] [address] documented as of this encounter Visit Diagnoses Not on filedocumented in this encounter Additional Health Concerns Infection Onset Date Last Indicated Resolved Time COVID-19 Rule Out 01/05/2022 01/05/2022 01/05/2022 12:36 PM CDT documented as of this encounter Care Teams Well Site Drilling Engineer Relationship Specialty Start Date End Date Moisés Dougherty MD [address] [facility] [address] [place] [address] PCP - General FAMILY PRACTICE 09/07/18 09/12/23 Yoel Marcos MD [facility], [address] [place] [address] PCP - CARDIOTHORACIC SURGERY CARDIOVASCULAR DISEASE 02/28/22 Maco Luna MD [address] [facility] [address] [place] [address] PCP - General INTERNAL MEDICINE 09/13/23 documented as of this encounter
--- OUTSIDE RECORDS SUMMARY | 2024-12-06 21:24 | XMS_ITS | Clinical Summary ---
Author Organization [facility] Address [address] [place] [address] Phone Care Team Providers Care American History Teacher Name Role Phone Moisés Dougherty MD Primary Care Provider [phone] Helio Aldrich MD Unavailable [phone] Allergies Active Allergy Reactions Criticality Noted Date [...] 05/27/1989: cT1b, cN0, cM0, G1, [place]: Positive, [place]: Positive, HER2: Unknown - Signed by Kale Shepherd MD on 01/17/2018 Essential hypertension 11/09/2017 Hyperlipidemia 05/09/2010 Malignant neoplasm of breast 05/09/2010 Syncope due to orthostatic hypotension 0 Immunizations Immunization Administration Dates Next Due Influenza, Unspecified 03/30/2019,01/17/2018, Pneumococcal Conjugate, Unspecified 11/17/2017 Surgical History Surgery Date Site/Laterality Comments MASTECTOMY BREAST LUMPECTOMY BREAST BIOPSY BREAST RECONSTRUCTION APPENDECTOMY CHOLECYSTECTOMY COLON SURGERY COLONOSCOPY HIP ARTHROPLASTY Right HYSTERECTOMY OOPHORECTOMY HERNIA REPAIR KNEE ARTHROPLASTY Right Medical History Medical History Date Comments Breast cancer (HCC) Hypertension Hypercholesteremia Thyroid disease Family History Medical History Relation Name Comments Colon cancer Mother Relation Name Status Comments Mother (Age 87) 84 when di agnosed Social History Tobacco Use Types Packs/Day Years [...] often do you attend chur ch or lutheran services? Never 06/30/2022 Do you belong to any clubs o r organizations such as uatsdin groups, unions, fraternal or athletic groups, or [...] on file Sexual Orientation Not on file Obstetrics History Last Filed Vital Signs Vital Sign Reading Time Taken Comments Blood Pressure 160/79 09/24/2022 10:02 AM CDT Pulse 69 09/24/2022 10:02 AM CDT Temperature 36.2 C (97.1 F) 07/03/2022 10:49 PM FAMILY RESOURCE COORDINATOR Respiratory Rate 18 07/03/2022 10:49 PM FAMILY RESOURCE COORDINATOR Oxygen Saturation 98% 07/03/2022 10:49 PM FAMILY RESOURCE COORDINATOR Inhaled Oxygen Concentration - - Weight 72.6 kg (160 lb) 09/24/2022 10:02 AM CDT Height 165.1 cm (5' 5) 09/24/2022 10:02 AM CDT Body Mass Index 26.63 09/24/2022 10:02 AM CDT Plan of Treatment Health Maintenance Due Date Last Done Comments Depression Screening 1940 Osteoporosis Screening-Bone Density Scan 1940 Hepatitis B Screening 1957 Zoster Vaccine (1 of 2) 1989 Well Visit 65+ 2004 Pneumococcal vaccine 65+ (2 of 2 - PPSV23) 11/17/2018 11/17/2017 Fall Risk Assessment 07/03/2023 07/03/2022 Covid-19 Vaccine ( - 2023-2 5 season) 2024 06/01/2021, 08/13/2020, 07/16/2020 Influenza Vaccine (Season Ended) 2025 03/17/2022, 03/30/2019, 01/17/2018, Additional history exists DTaP/Tdap/Td Vaccine (2 - Td or Tdap) 06/28/2032 06/28/2022 Medical Devices Implanted Type Area Director Of Integrated Marketing Device Identifier Shelf Expiration Date Model / Serial / Lot Synthes 1.7mm 750mm Crimp [employer]cl[employer] Orthopedic Stainless Steel 298.801.01s - [id number] Implanted:Qty: 1 on 07/01/2022 by Helio Aldrich MD at [facility] Right: Hip Synthes I 03/23/2026 298.801.01S / / [id number] [employer] Mdm 42mm 2 Mobility Modular Hip E Liner Acetabular Cocr [id number] - [id number] Implanted:Qty: 1 on 07/01/2022 by Helio Aldrich MD at [facility] Right: Hip [employer] 12/31/2026 [id number] / / [id number] Synthes 1.7mm 750mm Crimp [employer] Stain[employer] 298.801.01s - [id number] Implanted:Qty: 1 on 07/01/2022 by Helio Aldrich MD at [facility] Right: Hip Synthes I 07/21/2026 298.801.01S / / [id number] Synthes 1.7mm 750mm Crimp [employer] Stain[employer] 298.801.01s - [id number] Implanted:Qty: 1 on 07/01/2022 by Helio Aldrich MD at [facility] Right: Hip Synthes I 09/20/2025 298.801.01S / / [id number] Synthes 1.7mm 750mm Crimp [employer] Stain[employer] 298.801.01s - [id number] Implanted:Qty: 1 on 07/01/2022 by Helio Aldrich MD at [facility] Right: Hip Synthes I 12/21/2026 298.801.01S / / [id number] [employer] Reclaim 16mm 140mm 20 Grit Blast Surface Finish Hip Distal [id number] - [id number] Implanted:Qty: 1 on 07/01/2022 by Helio Aldrich MD at [facility] Right: Hip [employer] [id number] 09/21/[id number] / / [id number] [employer] Reclaim Articul/Valente 20mm 85mm 20 Grit Blast Surface Finish [id number] - [id number] Implanted:Qty: 1 on 07/01/2022 by Helio Aldrich MD at [facility] Right: Hip [employer] [id number] 01/21/[id number] / / [id number] [employer] Articul/Valente 28mm Hip +5mm /14 Taper Head Femoral Cocr Sterile Latex Free [id number] - [id number] Implanted:Qty: 1 on 07/01/2022 by Helio Aldrich MD at [facility] Right: Hip [employer] 03/23/2027 [id number] / / [id number] [employer] Insert Quaker Adm X3 48 [id number] - [id number] Implanted:Qty: 1 on 07/01/2022 by Helio Aldrich MD at [facility] Right: Hip [employer] 09/02/2026 [id number] / / [id number] Explanted Type Area Director Of Integrated Marketing Device Identifier Shelf Expiration Date Model / Serial / Lot [employer] 38mm Modular 2 Mobility Hip D Liner Acetabular [id number] - [id number] Explanted:Qty: 1 on 07/01/2022 at [facility] Right: Hip [employer] 06/22/2026 [id number] / / [id number] Insurance MEDICARE [facility] TRADITIONAL MEDICARE [facility] MEDICARE [employer] [facility] Advance Directives For more information, please contact: [phone] * Full Code (Latest Code Status on File) Date Activated Date Inactivated Comments 07/01/2022 6:27 PM 07/04/2022 3:45 AM * Full Code Date Activated Date Inactivated Comments 06/29/2022 7:48 PM 07/01/2022 6:27 PM Care Teams American History Teacher Relationship Specialty Start Date End Date Moisés Dougherty MD [address] [place] [address] PCP - General Family Medicine 01/17/18 Helio Aldrich MD [address] [place] [address] [address] [place] [address] Surgeon Orthopedic Surgery 07/03/22
--- NOTE | 2024-12-06 21:32 | ED_ITS ---
HPI - Fall General Chief Complaint: Fall Stated Complaint: Fall; L hip pain Time Seen by Provider: 12/06/24 20:56 History of Present Illness HPI Narrative: 84-year-old female presenting from home via EMS for a ground level fall. Patient was trying to get up off of her couch when she fell to her side when she tripped over her own foot. She landed on her left upper hip and left-sided pelvis. Was having difficulty getting up secondary to the pain. EMS arrived and provide her 50 mics of fentanyl and now she is pain free. Patient denies any pain at this time, no head trauma or loss of consciousness. No blood thinner use. She was otherwise in her normal state of health. History of right-sided intertrochanteric fracture and periprosthetic fracture previously but no left-sided hardware pelvic hardware otherwise. She normally ambulates with no assistance. Denies any other complaints at this time such as chest pain, abdominal pain, back pain, weakness, neuropathy or neurological deficits. Related Data Home Medications ?Medication ?Instructions ?Recorded ?Confirmed ?Last Taken ?Type levothyroxine 75 mcg tablet 75 mcg DAILY 03/12/22 12/03/23 06/28/22 History losartan 50 mg tablet 50 mg PO DAILY 12/03/23 12/03/23 Unknown History vibegron 75 mg tablet (Gemtesa) 75 mg PO DAILY 12/03/23 12/03/23 Unknown History Allergies Allergy/AdvReac Type Severity Reaction Status Date / Time losartan Allergy Intermediate RAPID HR, Verified 01/14/24 09:24 DIZZY, ANXIOUS prednisone Allergy Intermediate BLURRED Verified 01/14/24 09:24 VISION, FREQUENT URINATION Sulfa (Sulfonamide Allergy Intermediate Rash Verified 01/14/24 09:24 Antibiotics) adhesive tape Allergy Unknown RASH Verified 01/14/24 09:24 dexamethasone Allergy Unknown RASH Verified 01/14/24 09:24 erythromycin base Allergy Unknown RASH Verified 01/14/24 09:24 meperidine Allergy Unknown DIZZINESS/PASSES Verified 01/14/24 09:24 OUT nalbuphine Allergy Unknown PASSED OUT Verified 01/14/24 09:24 verapamil Allergy Unknown FAST Verified 01/14/24 09:24 HEART RATE sertraline AdvReac FAST Verified 01/14/24 09:24 HEART RATE DIZZY/ANXIOUS Review of Systems Review of Systems: As reviewed [facility] Past Medical History Medical History Anxiety TIA (transient ischemic attack) Breast cancer radiation Hypothyroid HTN (hypertension) Surgical History Surgical History H/O breast augmentation Left breast History of appendectomy History of bladder surgery History of colposcopy S/P lumpectomy, left breast H/O ventral hernia repair H/O hysterectomy for benign disease H/O cataract extraction History of total right knee replacement S/P total right hip arthroplasty Hx of cholecystectomy Family History Family History Son Lung cancer Mother Carcinoma of colon Father Acute myocardial infarction Sibling Acute myocardial infarction Brother Pulmonary emboli Sister Parkinson's disease Sibling Acute myocardial infarction Social History Social History Social History: She is and had 3 children but 1 has from lung cancer. The other 2 children became nurses. She is a Retired nurse. Code status full code Smoking status: Never smoker Second hand tobacco smoke exposure: No Alcohol intake: current Alcohol use details: MAYBE 1/MONTH Substance use: never Substance use type: does not use Do You Feel Safe in your Home?: Yes Lack of Transportation: No Lack of Food: Never True Current Housing: I Do Not Have Housing Concerned About Future Housing: No Difficulty Paying Gas/Electric Bills: No Difficulty Paying for Meds: No Currently Unemployed: No Education: High School Diploma/GED Difficulty w/ Childcare or Family Care: No Living arrangements: with family Occupation/Education: retired Additional occupation/education comments: [employer] Gender identity (if verbalized by the patient): Female Spiritual care concerns: No Exam Narrative: GENERAL: [Well-appearing, well-nourished, and in no acute distress.] HEAD: [Normocephalic, atraumatic.] EYES: [PERRLA and EOMI.] ENT: Nares clear, no rhinorrhea or epistaxis. Mucous membranes moist. NECK: Supple. CHEST: [Clear to auscultation. No respiratory distress.] HEART: [Regular rate and rhythm]. No murmur heard. [Normal peripheral pulses.] ABDOMEN: [Soft, nondistended], [nontender], [No rigidity or guarding] EXTREMITIES: Normal range of motion. [No edema.] No significant reproducible pain with palpation of the hips or femurs bilaterally, extensor mechanisms are intact bilaterally at the hip and knee. Able to plantar and dorsiflex 5/5. Strength is symmetric 5/5 in bilateral lower extremities and upper extremities. No significant overlying skin changes or any bruising evident. No deformity or leg length discrepancies. SKIN: Warm, dry, no rash. NEURO: [No focal deficits]. Alert and oriented [x3.] PSYCH: [Normal mood and affect.] Course Vital Signs Vital signs: Vital Signs Temperature 36.4 C 12/06/24 20: Pulse Rate 97 12/06/24 20:26 Respiratory Rate 24 H 12/06/24 20:26 Blood Pressure 154/74 H 12/06/24 20:26 Pulse Oximetry 97 12/06/24 20:26 Oxygen Delivery Room Air 12/06/24 20:26 Temperature 36.4 C 12/06/24 20:26 Pulse Rate 71 12/06/24 21:36 Respiratory Rate 17 12/06/24 21:36 Blood Pressure 132/81 12/06/24 21:36 Pulse Oximetry 94 12/06/24 21:36 Oxygen Delivery Room Air 12/06/24 20:26 MDM - Fall MDM Narrative Medical decision making narrative: 84-year-old female presenting from home via EMS for a ground level fall. Patient was trying to get up off of her couch when she fell to her side when she tripped over her own foot. She landed on her left upper hip and left-sided pelvis. Was having difficulty getting up secondary to the pain. EMS arrived and provide her 50 mics of fentanyl and now she is pain free. Patient denies any pain at this time, no head trauma or loss of consciousness. No blood thinner use. She was otherwise in her normal state of health. History of right-sided intertrochanteric fracture and periprosthetic fracture previously but no left-sided hardware pelvic hardware otherwise. She normally ambulates with no assistance. Denies any other complaints at this time such as chest pain, abdominal pain, back pain, weakness, neuropathy or neurological deficits. Exam reveals no significant reproducible pain with palpation of the hips or femurs bilaterally, extensor mechanisms are intact bilaterally at the hip and knee. Able to plantar and dorsiflex 5/5. Strength is symmetric 5/5 in bilateral lower extremities and upper extremities. No significant overlying skin changes or any bruising evident. No deformity or leg length discrepancies. Patient's vital signs are all within normal limits without any significant elevated blood pressure, no tachycardia, fever, hypoxia or tachypnea. Patient is reassuring examination but given her age and mechanism of injury multiple view x-rays were obtained of the pelvis and left hip although suspicion presently is for contusion rather than fracture or dislocation given good range of motion and pain being under control. X-rays were obtained independent reviewed with no acute osseous abnormalities in the hip or the left pelvis, right-sided hardware is intact. Patient and family informed of the x-ray findings and was ambulated here without any difficulty and safe for discharge home at this time. Questions were answered for both the patient and family and she was safe for discharge at this time. Medical Records Attestation: I reviewed the patient's medical records. Imaging Data Attestation: I personally reviewed and interpreted this imaging study as follows: My impression: Impressions Hip/Pelvis X-Ray 12/06/24 21:04 IMPRESSION: No acute osseous finding in the pelvis or left hip. Discharge Plan Discharge Clinical Impression: Fall, Left hip pain Patient Disposition: Home Condition: Stable Instructions: Antibiotic Form, Contusion in Adults (ED) Additional Instructions: No signs of any injury on your x-rays today. Follow-up with your regular doctor. Take Tylenol and ibuprofen for aches or pains. Return with any emergent concerns. Patient Language: Croatian Prescriptions: No Action losartan 50 mg tablet 50 mg PO DAILY Gemtesa 75 mg tablet 75 mg PO DAILY levothyroxine 75 mcg tablet 75 mcg DAILY Patient Comments: 1000 AM ibuprofen 400 mg tablet 400 mg PO Q6H Qty: 30 0RF Follow-up/Referrals: Jeremy,Maco Pena MD [Primary Care Provider] - Time of Disposition: 22:10
[2024-12-06 21:36] VITALS: BP 132/81; PULSE 71; RESP 17; O2SAT 94
[2024-12-06 23:00] VITALS: BP 132/81; PULSE 71; RESP 17; O2SAT 94
== END 2024-12-06 23:02 | disposition home or self-care (01) ==
PROVIDERS: Emergency Provider Student in an Organized Health Care Education/Training Program; PCP Internal Medicine
DX: M25.552 Pain in left hip (principal); F41.9 Anxiety disorder, unspecified; E03.9 Hypothyroidism, unspecified; I10 Essential (primary) hypertension; Z85.3 Personal history of malignant neoplasm of breast; W01.0XXA Fall on same level from slipping, tripping and stumbling without subsequent striking against object, initial encounter
CPT/HCPCS: 73502; 99283